=== PATIENT | female | born 1945 | race Caucasian/White ===

== ENCOUNTER 2020-01-20 16:54 | Inpatient (IN) ==
[2020-01-20] MEDS ORDERED: ROCEPHIN VIAL 1 GRAM 1 G in NS 100 ML IV + SPIKE MINIBAG* 100 ML IV ONE (17:43)
[2020-01-20] MEDS ORDERED: ZITHROMAX INJ 500 MG VIAL 500 MG in NS 250 ML IV 250 ML IV SCH (17:44)
[2020-01-20] MEDS ORDERED: ZITHROMAX INJ 500 MG VIAL IV ONE (17:54)
[2020-01-20] MEDS ORDERED: NS 250 ML IV 250 ML IV ONE (17:54)
[2020-01-20 18:05] LABS: BASOPHILS # (AUTO) 0.2 X10^3/uL (0.0-0.1); BASOPHILS % (AUTO) 1.1 % (0.2-1.0); HEMATOCRIT 35.6 % (36.0-47.0); HEMOGLOBIN 12.2 g/dL (12.0-16.0); LYMPHOCYTES # (AUTO) 2.4 X10^3/uL (1.3-2.9); LYMPHOCYTES % (AUTO) 17.4 % (21.0-51.0); MEAN CORPUSCULAR HEMOGLOBIN 32.1 pg (27.0-34.0); MEAN CORPUSCULAR HGB CONC 34.4 g/dL (33.0-35.0); MEAN CORPUSCULAR VOLUME 93.4 fL (80.0-100.0); MONOCYTES # (AUTO) 0.4 x10^3/uL (0.3-0.8); MONOCYTES % (AUTO) 3.2 % (0.0-13.0); NEUTROPHILS # (AUTO) 10.7 x10^3/uL (2.2-4.8); NEUTROPHILS % (AUTO) 78.3 % (42.0-75.0); PLATELET COUNT 238 X10^3/uL (150.0-450.0); RED BLOOD COUNT 3.81 X10^6/uL (3.5-5.4); RED CELL DISTRIBUTION WIDTH 13.2 % (11.6-16.5); WHITE BLOOD COUNT 13.7 X10^3/uL (3.6-10.0)
[2020-01-20 18:24] LABS: ALANINE AMINOTRANSFERASE 23 Units/L (12-78); ALKALINE PHOSPHATASE 82 Units/L (46-116); ASPARTATE AMINO TRANSFERASE 29 Units/L (15-37); BLOOD UREA NITROGEN 11 mg/dL (7-18); CALCIUM 8.8 mg/dL (8.5-10.1); CARBON DIOXIDE 25.9 mmol/L (21-32); CHLORIDE 96 mmol/L (98-107); COR CA(FOR HYPOALB) 9.6 mg/dL (8.5-10.1); COR NA(FOR HYPERGLY) 129 mmol/L (136-145); CREATININE 0.92 mg/dL (0.55-1.02); SODIUM 129 mmol/L (136-145); TOTAL PROTEIN 6.7 g/dL (6.4-8.2); TROPONIN I < 0.02 ng/mL (0-1.5); eGFR NON BLACK RACES > 60 (>60)
--- NOTE | 2020-01-20 18:25 | DR.AMS ---
HPI <Omero Marquez - Last Filed: 01/27/20 15:04> Time Seen Time Seen by Provider: 01/20/20 17:40 PCP Primary Care Physician: DR. BAER Complaint Chief Complaint:: GRANDDAUGHTER PATIENT TESTED POSITIVE FOR COVID LAST WEEK. STATES [facility]CCAIN DISCHARGED HER YESTERDAY FROM THE ER D/T NO BEDS. STATES CHO DIAGNOISED HER WITH PNA AND SENT HER HOME ON OXYGEN. PATIENT HAS BEEN CONFUSED AND TALKING OUT OF HER HEAD TODAY. PATIENT IS VERY WEAK AND CAN'T HARDLY WALK. COVID-19 Coronavirus risk:travel/contact w/high risk person: No Has patient experienced Coronavirus symptoms: Yes Coronavirus symptoms experienced: Fever, Coughing and Shortness of Breath Source History Provided: Family Member Mode of Arrival Mode of Arrival: Wheelchair Timing Onset of Chief Complaint: 01/19/20 PMH <Omeor Marquez - Last Filed: 01/27/20 15:04> PMH Past Medical History: No Past Surgical History: No Surgical History: No History Family History History of Family Medical Conditions: No Social History Does any household member use tobacco: No Alcohol Use: None Do you use any recreational Drugs:: No Lives With: Alone Lives Where: Home Travel Risk Coronavirus risk:travel/contact w/high risk person: No Has patient experienced Coronavirus symptoms: Yes Coronavirus symptoms experienced: Fever, Coughing and Shortness of Breath Infectious screening Have you traveled outside the country in the last 6 months?: No Isolation: Droplet ROS <Omero Marquez - Last Filed: 01/27/20 15:04> Review of Systems Constitutional: Diaphoresis, Fever, Malaise, Weakness and Fatigue Eyes: negative No Symptoms Reported, See HPI, Eye Pain, Blurred Vision, Tearing, Discharge, Photophobia, Diplopia and Other ENTM: negative No Symptoms Reported, See HPI, Ear Pain, Ear Discharge, Pulling o n Ears, Hearing Loss, Nose Pain, Nose Discharge, Epistaxis, Nose Congestion, Mouth Pain, Mouth Swelling, Loose Teeth, Drooling, Throat Pain, Throat Swelling, Ear Foreign Body and Tooth/Dental Pain Respiratoy: See HPI, Non-Productive Cough, Short of Breath and Wheezing Cardiovascular: negative No Symptoms Reported, See HPI, Chest Pain, Edema, Palpitations, Syncope, Cyanosis, Skin Mottling and Other Gastrointestinal/Abdominal: negative No Symptoms Reported, See HPI, Abdominal P ain, Constipation, Diarrhea, Nausea, Vomiting, Food Intolerance and Other Genitourinary: negative No Symptoms Reported, See HPI, Discharge, Dysuria, [place] quency, Hematuria, Pain, Bleeding and Other Neurological: Other (some confusion profound weakness) Musculoskeletal: Muscle Pain Integumentary: negative No Symptoms Reported, See HPI, Change in Color, Change in Hair/Nails, Dryness, Lesions, Lumps, Rash, Itching, Wound, Bruises, Juandice and Other Endocrine: negative No Symptoms Reported, See HPI, Excessive Sweating, Flushing, Intolerance to Cold, Intolerance to Heat, Increased Hunger, Increased Thirst, Increased Urine, Unexplained Weight Gain, Unexplained Weight Loss, Failure to Thrive, Decreased Appetite and Other Psychiatric: negative No Symptoms Reported, See HPI, Anxiety, Depression, Hallucinations, Excessive crying, Suicidal and Other All Other Systems: Reviewed and Negative PE <Omero Marquez - Last Filed: 01/27/20 15:04> Vitals Vital Signs: Temp Pulse Resp BP Pulse Ox 01/20/20 20:00 103 H 20 100/51 99 01/20/20 19:00 104 H 20 103/52 99 01/20/20 18:01 104 H 20 106/53 97 01/20/20 17:19 102.6 F H 119 H 20 94/54 86 L General Limitations: No Limitations General Appearance: Alert and Other (pt very weak but alert and oriented X3 ) Head Head Exam: Normal Inspection, Atraumatic and Normocephalic Eyes Eye exam: Normal Appearance, PERRL and EOMI; negative Scleral Icterus and Conjunctival Injection Pupils: Regular, Round: Bilateral ENT ENT Exam: Normal Exam, Normal Oropharynx, Normal External Ear Exam and Mucous Membranes Moist External Ear Exam: Normal External Inspection Mouth Exam: Normal Inspection Throat Exam: Normal Inspection Neck Neck Exam: Normal Inspection, Full ROM and Trachea Midline; negative Tenderness, Meningismus and Lymphadenopathy Chest Chest Inspection: Normal Inspection, Symmetric Chest Wall Rise and Tenderness Respiratory Respiratory Exam: negative Accessory Muscle Use, Chest Wall Tenderness and Prolonged Expiratory Phase Respiratory Exam: Bilateral: Rhonchi Cardiovascular Cardiovascular Exam: Regular Rate, Normal Rhythm and Normal Heart Sounds Abdominal Exam Abdominal Exam: Normal Inspection, Normal Bowel Sounds and Soft; negative Distention and Tenderness Extremities Extremities Exam: Normal Inspection and Full ROM; negative Tenderness and Edema Back Back Exam: Normal Inspection; negative Tenderness, (R) CVA Tenderness, (L) CVA Tenderness and Vertebral Tenderness Neurological Neurological Exam: Alert, Oriented X3 and Other (gait not tested 2nd to extreme weakness) Patient Oriented To: Person, Place and Time Speech: Fluid Speech Psychological Psychiatric Exam: Normal Affect and Normal Mood Skin Skin Exam: Warm, Dry, Intact and Normal Color <Sherry Sherman - Last Filed: 01/21/20 00:57> Vitals Vital Signs: Temp Pulse Resp BP Pulse Ox 01/20/20 20:00 103 H 20 100/51 99 01/20/20 19:00 104 H 20 103/52 99 01/20/20 18:01 104 H 20 106/53 97 01/20/20 17:19 102.6 F H 119 H 20 94/54 86 L <Sherry Sherman - Last Filed: 01/21/20 00:57> Treatment Treatment: [address] Marquez earlier this afternoon; s/w Dr Mccann who agrees to admit pt; of note, she tested covid + January 08. ROR <Omero Marquez - Last Filed: 01/27/20 15:04> Labs Reviewed Result Diagrams: 01/26/20 04:33 01/26/20 04:33 Laboratory: 01/20/20 18:17 Blood Blood Culture - Final 01/20/20 17:35 Blood Blood Culture - Final WBC 13.7 X10^3/uL (3.6-10.0) H 01/20/20 17:35 RBC 3.81 X10^6/uL (3.5-5.4) 01/20/20 17:35 Hgb 12.2 g/dL (12.0-16.0) 01/20/20 17:35 Hct 35.6 % (36.0-47.0) L 01/20/20 17:35 MCV 93.4 fL (80.0-100.0) 01/20/20 17:35 MCH 32.1 pg (27.0-34.0) 01/20/20 17:35 MCHC 34.4 g/dL (33.0-35.0) 01/20/20 17:35 RDW 13.2 % (11.6-16.5) 01/20/20 17:35 Plt Count 238 X10^3/uL (150.0-450.0) 01/20/20 17:35 MPV 9.0 fL (7.4-11.0) 01/20/20 17:35 Neut % (Auto) 78.3 % (42.0-75.0) H 01/20/20 17:35 Lymph % (Auto) 17.4 % (21.0-51.0) L 01/20/20 17:35 Garvin % (Auto) 3.2 % (0.0-13.0) 01/20/20 17:35 Eos % (Auto) 0.0 % (0.9-2.9) L 01/20/20 17:35 Baso % (Auto) 1.1 % (0.2-1.0) H 01/20/20 17:35 Neut # (Auto) 10.7 x10^3/uL (2.2-4.8) H 01/20/20 17:35 Lymph # (Auto) 2.4 X10^3/uL (1.3-2.9) 01/20/20 17:35 Garvin # (Auto) 0.4 x10^3/uL (0.3-0.8) 01/20/20 17:35 Eos # (Auto) 0.0 x10^3/uL (0.0-0.2) 01/20/20 17:35 Baso # (Auto) 0.2 X10^3/uL (0.0-0.1) H 01/20/20 17:35 Absolute Nucleated RBC 0.0 /100WBC 01/20/20 17:35 Sample Site Rra 01/20/20 18:36 ABG pH 7.550 (7.35-7.45) H 01/20/20 18:36 ABG pCO2 30.0 mmHg (35.0-45.0) L 01/20/20 18:36 ABG pO2 59.0 mmHg (80.0-100.0) L 01/20/20 18:36 ABG HCO3 26.2 mmol/L (22-26) H 01/20/20 18:36 ABG O2 Saturation 94.0 % (90-100) 01/20/20 18:36 ABG Base Excess 4.3 mmol/L (-2.0-2.0) H 01/20/20 18:36 Marquise Test Pos 01/20/20 18:36 A-a Gradient 53.0 mmHg 01/20/20 18:36 FiO2 21.0 01/20/20 18:36 Blood Gas Comments Pt yfn well eb 01/20/20 18:36 Sodium 129 mmol/L (136-145) L 01/20/20 17:35 Corrected Sodium 129 mmol/L (136-145) L 01/20/20 17:35 Potassium 3.9 mmol/L (3.5-5.1) 01/20/20 17:35 Chloride 96 mmol/L (98-107) L 01/20/20 17:35 Carbon Dioxide 25.9 mmol/L (21-32) 01/20/20 17:35 BUN 11 mg/dL (7-18) 01/20/20 17:35 Creatinine 0.92 mg/dL (0.55-1.02) 01/20/20 17:35 Est GFR (MDRD) Af Amer > 60 (>60) 01/20/20 17:35 Est GFR (MDRD) Non-Af > 60 (>60) 01/20/20 17:35 Glucose 120 mg/dL (65-99) H 01/20/20 17:35 Lactic Acid 1.1 mmol/L (0.4-2.0) 01/20/20 17:35 Calcium 8.8 mg/dL (8.5-10.1) 01/20/20 17:35 Corrected Calcium 9.6 mg/dL (8.5-10.1) 01/20/20 17:35 Total Bilirubin 0.40 mg/dL (0.2-1.0) 01/20/20 17:35 AST 29 Units/L (15-37) 01/20/20 17:35 ALT 23 Units/L (12-78) 01/20/20 17:35 Alkaline Phosphatase 82 Units/L (46-116) 01/20/20 17:35 Troponin I < 0.02 ng/mL (0-1.5) 01/20/20 17:35 B-Natriuretic Peptide 64.5 pg/mL (0-79) 01/20/20 17:35 Total Protein 6.7 g/dL (6.4-8.2) 01/20/20 17:35 Albumin 3.0 g/dL (3.4-5.0) L 01/20/20 17:35 Globulin 3.7 g/dL (2.5-4.5) 01/20/20 17:35 Albumin/Globulin Ratio 0.8 Ratio (1.1-2.1) L 01/20/20 17:35 Specimen Type Clean catch urine 01/20/20 21:11 Urine Color Yellow (YELLOW) 01/20/20 21:11 Urine Appearance Clear (CLEAR) 01/20/20 21:11 Urine pH 8.0 (5.0 - 8.0) 01/20/20 21:11 Ur Specific [place] 1.010 (1.000-1.030) 01/20/20 21:11 Urine Protein 2+ (NEGATIVE) 01/20/20 21:11 Urine Glucose (UA) Negative (NEGATIVE) 01/20/20 21:11 Urine Ketones 2+ (NEGATIVE) 01/20/20 21:11 Urine Occult Blood Negative (NEGATIVE) 01/20/20 21:11 Urine Nitrite Negative (NEGATIVE) 01/20/20 21:11 Urine Bilirubin Negative (NEGATIVE) 01/20/20 21:11 Urine Urobilinogen Normal (NORMAL) 01/20/20 21:11 Ur Leukocyte Esterase 1+ (NEGATIVE) 01/20/20 21:11 Urine RBC None seen /HPF (0-3) 01/20/20 21:11 Urine WBC 0-2 /HPF (0-5) 01/20/20 21:11 Ur Squamous Epith Cells Few /HPF (NEGATIVE) 01/20/20 21:11 Urine Bacteria Trace /HPF (NEGATIVE) 01/20/20 21:11 Ur Culture Indicated? No/not indicated 01/20/20 21:11 EKG Rate: 103 Rhythm: NSR Block: None Hypertrophy: LAE ST: Normal <Sherry Sherman - Last Filed: 01/21/20 00:57> Labs Reviewed Laboratory Results Reviewed?: Yes Laboratory: 01/20/20 18:17 Blood Blood Culture - Final 01/20/20 17:35 Blood Blood Culture - Final WBC 13.7 X10^3/uL (3.6-10.0) H 01/20/20 17:35 RBC 3.81 X10^6/uL (3.5-5.4) 01/20/20 17:35 Hgb 12.2 g/dL (12.0-16.0) 01/20/20 17:35 Hct 35.6 % (36.0-47.0) L 01/20/20 17:35 MCV 93.4 fL (80.0-100.0) 01/20/20 17:35 MCH 32.1 pg (27.0-34.0) 01/20/20 17:35 MCHC 34.4 g/dL (33.0-35.0) 01/20/20 17:35 RDW 13.2 % (11.6-16.5) 01/20/20 17:35 Plt Count 238 X10^3/uL (150.0-450.0) 01/20/20 17:35 MPV 9.0 fL (7.4-11.0) 01/20/20 17:35 Neut % (Auto) 78.3 % (42.0-75.0) H 01/20/20 17:35 Lymph % (Auto) 17.4 % (21.0-51.0) L 01/20/20 17:35 Garvin % (Auto) 3.2 % (0.0-13.0) 01/20/20 17:35 Eos % (Auto) 0.0 % (0.9-2.9) L 01/20/20 17:35 Baso % (Auto) 1.1 % (0.2-1.0) H 01/20/20 17:35 Neut # (Auto) 10.7 x10^3/uL (2.2-4.8) H 01/20/20 17:35 Lymph # (Auto) 2.4 X10^3/uL (1.3-2.9) 01/20/20 17:35 Garvin # (Auto) 0.4 x10^3/uL (0.3-0.8) 01/20/20 17:35 Eos # (Auto) 0.0 x10^3/uL (0.0-0.2) 01/20/20 17:35 Baso # (Auto) 0.2 X10^3/uL (0.0-0.1) H 01/20/20 17:35 Absolute Nucleated RBC 0.0 /100WBC 01/20/20 17:35 Sample Site Rra 01/20/20 18:36 ABG pH 7.550 (7.35-7.45) H 01/20/20 18:36 ABG pCO2 30.0 mmHg (35.0-45.0) L 01/20/20 18:36 ABG pO2 59.0 mmHg (80.0-100.0) L 01/20/20 18:36 ABG HCO3 26.2 mmol/L (22-26) H 01/20/20 18:36 ABG O2 Saturation 94.0 % (90-100) 01/20/20 18:36 ABG Base Excess 4.3 mmol/L (-2.0-2.0) H 01/20/20 18:36 Marquise Test Pos 01/20/20 18:36 A-a Gradient 53.0 mmHg 01/20/20 18:36 FiO2 21.0 01/20/20 18:36 Blood Gas Comments Pt yfn well eb 01/20/20 18:36 Sodium 129 mmol/L (136-145) L 01/20/20 17:35 Corrected Sodium 129 mmol/L (136-145) L 01/20/20 17:35 Potassium 3.9 mmol/L (3.5-5.1) 01/20/20 17:35 Chloride 96 mmol/L (98-107) L 01/20/20 17:35 Carbon Dioxide 25.9 mmol/L (21-32) 01/20/20 17:35 BUN 11 mg/dL (7-18) 01/20/20 17:35 Creatinine 0.92 mg/dL (0.55-1.02) 01/20/20 17:35 Est GFR (MDRD) Af Amer > 60 (>60) 01/20/20 17:35 Est GFR (MDRD) Non-Af > 60 (>60) 01/20/20 17:35 Glucose 120 mg/dL (65-99) H 01/20/20 17:35 Lactic Acid 1.1 mmol/L (0.4-2.0) 01/20/20 17:35 Calcium 8.8 mg/dL (8.5-10.1) 01/20/20 17:35 Corrected Calcium 9.6 mg/dL (8.5-10.1) 01/20/20 17:35 Total Bilirubin 0.40 mg/dL (0.2-1.0) 01/20/20 17:35 AST 29 Units/L (15-37) 01/20/20 17:35 ALT 23 Units/L (12-78) 01/20/20 17:35 Alkaline Phosphatase 82 Units/L (46-116) 01/20/20 17:35 Troponin I < 0.02 ng/mL (0-1.5) 01/20/20 17:35 B-Natriuretic Peptide 64.5 pg/mL (0-79) 01/20/20 17:35 Total Protein 6.7 g/dL (6.4-8.2) 01/20/20 17:35 Albumin 3.0 g/dL (3.4-5.0) L 01/20/20 17:35 Globulin 3.7 g/dL (2.5-4.5) 01/20/20 17:35 Albumin/Globulin Ratio 0.8 Ratio (1.1-2.1) L 01/20/20 17:35 Specimen Type Clean catch urine 01/20/20 21:11 Urine Color Yellow (YELLOW) 01/20/20 21:11 Urine Appearance Clear (CLEAR) 01/20/20 21:11 Urine pH 8.0 (5.0 - 8.0) 01/20/20 21:11 Ur Specific [place] 1.010 (1.000-1.030) 01/20/20 21:11 Urine Protein 2+ (NEGATIVE) 01/20/20 21:11 Urine Glucose (UA) Negative (NEGATIVE) 01/20/20 21:11 Urine Ketones 2+ (NEGATIVE) 01/20/20 21:11 Urine Occult Blood Negative (NEGATIVE) 01/20/20 21:11 Urine Nitrite Negative (NEGATIVE) 01/20/20 21:11 Urine Bilirubin Negative (NEGATIVE) 01/20/20 21:11 Urine Urobilinogen Normal (NORMAL) 01/20/20 21:11 Ur Leukocyte Esterase 1+ (NEGATIVE) 01/20/20 21:11 Urine RBC None seen /HPF (0-3) 01/20/20 21:11 Urine WBC 0-2 /HPF (0-5) 01/20/20 21:11 Ur Squamous Epith Cells Few /HPF (NEGATIVE) 01/20/20 21:11 Urine Bacteria Trace /HPF (NEGATIVE) 01/20/20 21:11 Ur Culture Indicated? No/not indicated 01/20/20 21:11 Covid19 positive Other Results Comments: 2309 Dr Mccann notified of covid19 results; will place on protocol. XRAY XRAY Interpreted by: Radiologist X-ray Results: CXR: Perihilar and bibasilar opacities suggestive of early multisegmental bronchopneumonia which is more apparent. Stable mild cardiomegaly. BRAIN CT: No abnormality seen. Opioid <Omero Marquez - Last Filed: 01/27/20 15:04> Opioid Risk Tool Age ([place] box if 16-45): No Total: 0 Total Score Risk Category: Low Risk Copyright: Smith ARVIN predicting aberrant behaviors <Sherry Sherman - Last Filed: 01/21/20 00:57> Opioid Risk Tool Total: 0 Total Score Risk Category: Low Risk <Omero Marquez - Last Filed: 01/27/20 15:04> Diagnosis Discharge Problem: Hyponatremia, Hypoxia, COVID-19 virus detected Pneumonia of both lower lobes Qualifiers: Pneumonia type: due to unspecified organism Qualified Code(s): J18.9 - Pneumonia, unspecified organism Altered mental status Qualifiers: Altered mental status type: disorientation Qualified Code(s): R41.0 - Disorientation, unspecified Sepsis Qualifiers: Sepsis type: sepsis due to unspecified organism Sepsis acute organ dysfunction status: with acute organ dysfunction Severe sepsis acute organ dysfunction type: acute respiratory failure Acute respiratory failure type: with hypoxia Severe sepsis shock status: without septic shock Qualified Code(s): A41.9 - Sepsis, unspecified organism Instructions Instructions: Confusion Fatigue Hand Washing, [id number] Hypoxia Fever, Adult Cough, Adult, Wtqg-am-Rzve Personal Hygiene Droplet Precautions, Jnaz-cp-Nmur Bleeding Precautions When on Anticoagulant Therapy, Adult Hyponatremia, Epyn-iu-Wevy Community-Acquired Pneumonia, Adult, [id number] Forms: Excuse From Work Precautions for COVID19 Patient Portal
[2020-01-20 18:35] LABS: LACTIC ACID 1.1 mmol/L (0.4-2.0)
[2020-01-20 18:40] LABS: ABG BASE EXCESS 4.3 mmol/L (-2.0-2.0); ABG HCO3 26.2 mmol/L (22-26)
[2020-01-20 18:41] LABS: ABG ALLEN TEST POS
[2020-01-20] MEDS ORDERED: ROCEPHIN VIAL 1 GRAM ONE (19:07)
[2020-01-20] MEDS ORDERED: NS 100 ML IV + SPIKE MINIBAG* 100 ML IV ONE (19:07)
--- NOTE | 2020-01-20 19:20 | CT ---
HISTORY: Mental status changesStudy: CT brain without contrastComparison: 07/25/2019Technique:Multiple axial images of the brain were obtained from the skull base to the vertex without administration of IV contrast. Automated dose control was utilized.Findings:No acute intraparenchymal hemorrhage or mass can be identified. No extra-axial fluid collections are seen. No alteration in the attenuation of the brain parenchyma can be identified to suggest acute or subacute ischemic change. The ventricular system is symmetric and nondilated. The extracranial structures are grossly unremarkable.IMPRESSION:No abnormality seen.Electronically signed by: FREDDY MCWILLIAMS (Jan 20, 2020 19:18:26)
--- NOTE | 2020-01-20 19:40 | RAD ---
HISTORYSOB, COVID-19+STUDYCHEST, 1 [id number]/2020FINDINGSThe heart is mildly enlarged but unchanged. The pulmonary vessels are normal. There is hazy opacity along the perihilar regions extending laterally and inferiorly into both lung bases which is more prominent. No effusion is seen.IMPRESSIONPerihilar and bibasilar opacities suggestive of early multisegmental bronchopneumonia which is more apparent.Stable mild cardiomegaly.Electronically signed by: FREDDY MCWILLIAMS (Jan 20, 2020 19:39:27)
[2020-01-20 21:27] LABS: BILIRUBIN,URINE NEGATIVE (NEGATIVE); BLOOD/HEMOGLOBIN,URINE NEGATIVE (NEGATIVE); GLUCOSE, URINE NEGATIVE (NEGATIVE); KETONES,URINE 2+ (NEGATIVE); LEUKOCYTE ESTERASE ,URINE 1+ (NEGATIVE); NITRITES,URINE NEGATIVE (NEGATIVE); PROTEIN,URINE 2+ (NEGATIVE); UROBILINOGEN,URINE NORMAL (NORMAL)
[2020-01-20 21:44] LABS: APPEARANCE,URINE CLEAR (CLEAR); COLOR,URINE YELLOW (YELLOW)
[2020-01-20 21:45] LABS: BACTERIA,URINE TRACE /HPF (NEGATIVE); RBC,URINE NONE SEEN /HPF (0-3); SQUAMOUS EPITHELIAL CELL,UR FEW /HPF (NEGATIVE)
[2020-01-20] MEDS ORDERED: NS 1000 ML 1,000 ML ONE (22:46)
[2020-01-20] MEDS: NS 1000 ML 1,000 ML IV SCH (22:51)
[2020-01-20] MEDS ORDERED: ASCORBIC ACID INJ MULTI-DOSE VIAL IM SCH (23:15)
[2020-01-20] MEDS ORDERED: CONSULT PHARMACY - ANTIBIOTIC XX SCH (23:45)
[2020-01-21 00:02] VITALS: BMI 17.7
[2020-01-21] MEDS: ASCORBIC ACID INJ MULTI-DOSE VIAL IV SCH ×2 (00:30→05:26)
[2020-01-21] MEDS ORDERED: NS 100 ML IV 100 ML IV ONE ×2 (00:36→03:53)
[2020-01-21 05:00] LABS: BASOPHILS % (AUTO) 0.3 % (0.2-1.0); HEMATOCRIT 35.7 % (36.0-47.0); LYMPHOCYTES # (AUTO) 2.4 X10^3/uL (1.3-2.9); LYMPHOCYTES % (AUTO) 18.6 % (21.0-51.0); MEAN CORPUSCULAR HEMOGLOBIN 31.9 pg (27.0-34.0); MEAN CORPUSCULAR HGB CONC 33.5 g/dL (33.0-35.0); MEAN CORPUSCULAR VOLUME 95.1 fL (80.0-100.0); MEAN PLATELET VOLUME 9.1 fL (7.4-11.0); MONOCYTES # (AUTO) 0.4 x10^3/uL (0.3-0.8); MONOCYTES % (AUTO) 2.8 % (0.0-13.0); NEUTROPHILS % (AUTO) 78.3 % (42.0-75.0); PLATELET COUNT 233 X10^3/uL (150.0-450.0); RED BLOOD COUNT 3.76 X10^6/uL (3.5-5.4); RED CELL DISTRIBUTION WIDTH 13.3 % (11.6-16.5); WHITE BLOOD COUNT 12.8 X10^3/uL (3.6-10.0)
[2020-01-21 05:20] LABS: ALANINE AMINOTRANSFERASE 23 Units/L (12-78); ALBUMIN 2.9 g/dL (3.4-5.0); ALKALINE PHOSPHATASE 85 Units/L (46-116); ASPARTATE AMINO TRANSFERASE 32 Units/L (15-37); BLOOD UREA NITROGEN 10 mg/dL (7-18); CALCIUM 8.4 mg/dL (8.5-10.1); CARBON DIOXIDE 26.9 mmol/L (21-32); CHLORIDE 100 mmol/L (98-107); COR CA(FOR HYPOALB) 9.3 mg/dL (8.5-10.1); CREATININE 0.98 mg/dL (0.55-1.02); SODIUM 135 mmol/L (136-145); TOTAL PROTEIN 6.8 g/dL (6.4-8.2); eGFR NON BLACK RACES 59 (>60)
[2020-01-21] MEDS ORDERED: POTASSIUM CHL 40 MEQ/NS 0.45% 500 ML IV PRN (06:40)
[2020-01-21] MEDS ORDERED: MICRO K EXTEN CAP 10 MEQ PO PRN (06:40)
[2020-01-21] MEDS ORDERED: KLOR-CON PO PRN (06:40)
[2020-01-21] MEDS ORDERED: POTASSIUM CHL 60 MEQ/NS 0.45% 500 ML IV PRN (06:40)
[2020-01-21] MEDS ORDERED: K-RIDER 10 MEQ/NS 100 ML 10 MEQ/100 ML BAG IV PRN (06:40)
[2020-01-21] MEDS ORDERED: POTASSIUM CHLORIDE LIQ 20 MEQ UDC PO PRN (06:40)
[2020-01-21] MEDS ORDERED: CORTEF ONE (08:40)
[2020-01-21] MEDS: PLAQUENIL PO SCH ×2 (08:43→20:44)
[2020-01-21] MEDS: LOVENOX INJ 30 MG SYR SC SCH ×2 (08:43→20:44)
[2020-01-21] MEDS: DUONEB 0.5 MG/3 MG (3 mL) NEB SCH ×4 (08:52→21:46)
[2020-01-21] MEDS: PULMICORT NEB TX 0.5 MG NEB SCH ×2 (08:52→21:46)
[2020-01-21] MEDS ORDERED: TYLENOL 325 MG TAB PO PRN (09:00)
[2020-01-21] MEDS ORDERED: CORTEF PO SCH (09:00)
[2020-01-21] MEDS ORDERED: VITAMIN A PO SCH (09:00)
[2020-01-21] MEDS ORDERED: VITAMIN D (1.25MG) PO SCH (09:00)
[2020-01-21] MEDS ORDERED: ZINC SULFATE PO SCH (09:00)
[2020-01-21] MEDS ORDERED: THIAMINE HCL INJ IVP SCH (09:00)
[2020-01-21] MEDS: K-DUR TAB 20 MEQ PO PRN (09:02)
[2020-01-21] MEDS ORDERED: PHARMACY CONSULT - TPN XX SCH (10:00)
[2020-01-21] MEDS ORDERED: REMDESIVIR (INVESTIGATIONAL DRUG GS-5734) 200 MG in NS 250 ML IV 250 ML IV NR (10:30)
[2020-01-21 10:44] LABS: ABG ALLEN TEST POS; ABG BASE EXCESS 2.3 mmol/L (-2.0-2.0)
[2020-01-21] MEDS: ACTEMRA 400 MG in NS 100 ML IV 80 ML IV SCH (11:22)
[2020-01-21] MEDS: LEVAQUIN PREMIX IV 500 MG 500 MG/100 ML BAG IV SCH (11:23)
[2020-01-21] MEDS: PROCALAMINE 3 % 1,000 ML IV SCH (11:23)
[2020-01-21] MEDS: PROTONIX INJ 40 MG VIAL IVP SCH ×2 (11:23→20:48)
[2020-01-21] MEDS: NS 1000 ML 1,000 ML IV SCH (11:24)
--- NOTE | 2020-01-21 13:01 | DR.H&P ---
H&P - History & Physical for Day of: H&P Date: 01/20/20 - Chief Complaint Chief Complaint: FEVER, COUGH, SOB, AMS, WEAKNESS - History of Present Illness History of Present Illness: IS A 74 YEAR OLD PATIENT OF DR.ROXY REYNA. SHE PRESENTED TO THE ER WITH COMPLAINTS OF FEVER, NON-COUGH, SHORTNESS OF BREATH, AMS, AND WEAKNESS. SYMPTOMS STARTED APPROXIMATELY THREE DAYS PRIOR. SHE WAS TREATED AND DIAGNOSED IN THE ER IN [place], [place] YESTERDAY FOR PNEMONIA. PATIENT REPORTS THAT HER GRANDAUGHTER TESTED POSITIVE FOR COVID- 19 ONE WEEK AGO AND THAT HER ABOUT A MONTH AGO DUE TO COMPLICATIONS RELATED TO COVID-19. HER PAST MEDICAL HISTORY INCLUDES: GERD, CHRONIC BRONCHITIS, KIDNEY STONES, HYPOTHYROIDISM, CHOLECYSTECTOMY, AND HYSTERECTOMY. ON ARRIVAL TO THE ER, VITALS WERE 102.6-119-20-86%RA-94/54. LABS WERE OBTAINED. ABNORMAL LAB VALUES INCLUDE THE FOLLOWING: WBC 13.7, HCT 35.6, SODIUM 129, CHLORIDE 96, GLUCOSE 120, ALBUMIN 3.0. A URINALYSIS WAS OBTAINED AND REVEALED: WBC 0-3, RBC NONE SEEN, LEUKOCYTES 1+, BACTERIA TRACE. COVID-19 POSITIVE. BLOOD CULTURES WERE SET UP. A CHEST XRAY WAS OBTAINED AND REVEALED: Perihilar and bibasilar opacities suggestive of early multisegmental bronchopneumonia which is more apparent. Stable mild cardiomegaly. AN EKG WAS OBTAINED AND REVEALED: SINUS TACHYCARDIA WITH HR 103. STAFF REPORTED THAT PATIENT HAD A SEIZURE WHILE IN THE ER AND WAS POST ICTAL FOR A WHILE FOLLOWING EPISODE. A BRAIN CT WAS OBTAINED DUE TO AMS AND REVEALED: No abnormality seen. SHE WAS GIVEN ZITHROMAX 500 IV X 1 AND ROCEPHIN 1G IV X 1 IN THE ER. SHE WAS ADMITTED FOR FURTHER EVALUATION AND TREATMENT OF COVID-19, MULTIFOCAL PNEUMONIA, HYPOXIA, HYPONATREMIA, AND AMS. SHE WAS STARTED ON NS AT 40 ML/HR, PROCALAMINE AT 40 ML/HR, LEVAQUIN 500MG IV DAILY, FORTAZ 1G IV Q8H, DUONEBS QID, PULMICORT BID, TYLENOL 650MG PO Q4H PRN, LOVENOX 30MG SC BID, PLAQUENIL 200MG PO BID, PROTONIX 40MG IV BID, AND THE POTASSIUM AND MAGNESIUM PROTOCOLS. TODAY, WE WILL ADMINISTER REMDESIVIR 200MG IV X 1 DOSE, THEN 100MG IV DAILY, ACTEMRA 400MG IV DAILY X 2 DOSES. WE WILL ADMINISTER SOLU-MEDROL 125MG IV X 1 DOSE, THEN 80MG IV Q8H. WE WILL REPEAT AN ABG TODAY. OTHERWISE, WE PLAN TO FOLLOW UP WITH AM LABS AND CONTINUE TO MONITOR. - Past Medical History Past Medical History: GERD, Hypothyroidism, Kidney Stones Additional Medical History: CHRONIC BRONCHITIS, - Past Surgical History Surgical History: Cholecystectomy, Hysterectomy - Social History Does any household member use tobacco: No Alcohol Use: None Drug Use: None - Medications Home Medications: No Known Drug Allergies Allergy (Verified 01/20/20 19:04) CONTINUE taking the following medications clonazepam 0.125 mg TRANSLINGUAL TID 01/21/20 [History] dexamethasone 6 mg PO DAILY 01/21/20 [History] diclofenac sodium 1 % TOPICAL PRN PRN 01/21/20 [History] estradiol 0.5 mg PO DAILY 01/21/20 [History] ibuprofen 800 mg PO TID PRN 01/21/20 [History] ipratropium-albuterol [Combivent Respimat] 1 puff INHALATION BID 01/21/20 [History] levothyroxine [Synthroid] 75 mcg PO DAILY 01/21/20 [History] meclizine 25 mg PO TID PRN 01/21/20 [History] naproxen 500 mg PO BID PRN 01/21/20 [History] nortriptyline 10 mg PO DAILY 01/21/20 [History] omeprazole 40 mg PO DAILY 01/21/20 [History] perphenazine-amitriptyline 1 tab PO DAILY 01/21/20 [History] prednisone 10 mg PO BID 01/21/20 [History] zinc sulfate 220 mg PO BID 01/21/20 [History] - Review of Systems Constitutional: Fever, Chills, Weakness Eyes: No Symptoms Reported ENT: No Symptoms Reported, Nose Congestion Respiratory: Cough, Shortness of Breath Cardiovascular: No Symptoms Reported Gastrointestinal: No Symptoms Reported Genitourinary: No Symptoms Reported Musculoskeletal: No Symptoms Reported Skin: No Symptoms Reported Neurological: Weakness, Confusion, Seizures - Physical Exam Vital Signs: Temperature 98.2 F Pulse Rate [Left Brachial] 100 Pulse Rate 93 Respiratory Rate 19 Blood Pressure [Left Arm] 99/52 Blood Pressure 100/51 O2 Sat by Pulse Oximetry 98 Oriented: Not Oriented Eyes: Normal Ear: Normal Nose: Normal Throat: Normal Respiratory: Wheezes Throughout Cardiovascular: Tachycardia. negative: S3, S4 : Normal Auscultation: Bowel Sounds: Normal Palpation: Normal Tenderness: Normal Skin: Normal Musculoskeletal: Normal Psychiatric: Normal Mood Description: Calm Affect: Normal Speech Pattern: Clear - Assessment/Plan (1) COVID-19 virus detected Status: Acute Plan: ADMIT, NS AT 40 ML/HR, PROCALAMINE AT 40 ML/HR, LEVAQUIN 500MG IV DAILY, FORTAZ 1G IV Q8H, DUONEBS QID, PULMICORT BID, TYLENOL 650MG PO Q4H PRN, LOVENOX 30MG SC BID, PLAQUENIL 200MG PO BID, PROTONIX 40MG IV BID, AND THE POTASSIUM AND MAGNESIUM PROTOCOLS. TODAY, WE WILL ADMINISTER REMDESIVIR 200MG IV X 1 DOSE, THEN 100MG IV DAILY, ACTEMRA 400MG IV DAILY X 2 DOSES. WE WILL ADMINISTER SOLU- MEDROL 125MG IV X 1 DOSE, THEN 80MG IV Q8H (2) Pneumonia of both lower lobes Qualifiers: Pneumonia type: due to unspecified organism Qualified Code(s): J18.9 - Pneumonia, unspecified organism Status: Acute (3) Hypoxia Status: Acute (4) Hyponatremia Status: Acute (5) Altered mental status Qualifiers: Altered mental status type: disorientation Qualified Code(s): R41.0 - Disorientation, unspecified Status: Acute - Allergies Allergies/Adverse Reactions: Allergies Allergy/AdvReac Type Severity Reaction Status Date / Time No Known Drug Allergies Allergy Verified 01/20/20 19:04
[2020-01-21] MEDS: FORTAZ or TAZICEF VIAL INJ 1 G in NS 100 ML IV + SPIKE MINIBAG* 100 ML IV SCH ×2 (13:03→22:00)
[2020-01-21] MEDS ORDERED: SOLU-Medrol 125 MG VIAL IVP ONE (14:00)
[2020-01-21] MEDS ORDERED: SOLU-Medrol 40 MG VIAL ONE (19:44)
[2020-01-21] MEDS: SOLU-Medrol 40 MG VIAL IVP SCH (22:00)
[2020-01-21] MEDS ORDERED: ZITHROMAX INJ 500 MG VIAL 500 MG in NS 250 ML IV 250 ML IV SCH (23:00)
[2020-01-22] MEDS: NS 1000 ML 1,000 ML IV SCH ×2 (01:43→14:53)
[2020-01-22 05:28] LABS: ABG ALLEN TEST POS; ABG BASE EXCESS 0.1 mmol/L (-2.0-2.0); ABG HCO3 23.6 mmol/L (22-26)
[2020-01-22] MEDS: FORTAZ or TAZICEF VIAL INJ 1 G in NS 100 ML IV + SPIKE MINIBAG* 100 ML IV SCH ×3 (06:09→22:10)
[2020-01-22] MEDS: SOLU-Medrol 40 MG VIAL IVP SCH ×3 (06:09→21:15)
--- NOTE | 2020-01-22 06:09 | RAD ---
HISTORYSOBSTUDYCHEST, 1 [id number]/14/2020FINDINGSThe trachea is midline. The cardiac silhouette is stable. Bibasilar infiltrates, unchanged. No pneumothorax. The bony thorax is unremarkable.IMPRESSIONBibasilar infiltrates; no significant change from 01/20/2020Electronically signed by: Saji Herrera (Jan 22, 2020 06:08:17)
[2020-01-22 07:18] LABS: BASOPHILS % (AUTO) 0.1 % (0.2-1.0); HEMATOCRIT 30.7 % (36.0-47.0); HEMOGLOBIN 10.6 g/dL (12.0-16.0); LYMPHOCYTES # (AUTO) 0.8 X10^3/uL (1.3-2.9); LYMPHOCYTES % (AUTO) 14.6 % (21.0-51.0); MEAN CORPUSCULAR HEMOGLOBIN 32.3 pg (27.0-34.0); MEAN CORPUSCULAR HGB CONC 34.5 g/dL (33.0-35.0); MEAN CORPUSCULAR VOLUME 93.7 fL (80.0-100.0); MEAN PLATELET VOLUME 8.7 fL (7.4-11.0); MONOCYTES # (AUTO) 0.1 x10^3/uL (0.3-0.8); MONOCYTES % (AUTO) 1.8 % (0.0-13.0); NEUTROPHILS # (AUTO) 4.4 x10^3/uL (2.2-4.8); NEUTROPHILS % (AUTO) 83.5 % (42.0-75.0); PLATELET COUNT 197 X10^3/uL (150.0-450.0); RED BLOOD COUNT 3.28 X10^6/uL (3.5-5.4); RED CELL DISTRIBUTION WIDTH 13.2 % (11.6-16.5); WHITE BLOOD COUNT 5.3 X10^3/uL (3.6-10.0)
[2020-01-22 07:31] LABS: ALANINE AMINOTRANSFERASE 24 Units/L (12-78); ALBUMIN 2.2 g/dL (3.4-5.0); ALKALINE PHOSPHATASE 67 Units/L (46-116); ASPARTATE AMINO TRANSFERASE 28 Units/L (15-37); BLOOD UREA NITROGEN 11 mg/dL (7-18); CALCIUM 7.8 mg/dL (8.5-10.1); CARBON DIOXIDE 24.4 mmol/L (21-32); CHLORIDE 106 mmol/L (98-107); COR CA(FOR HYPOALB) 9.2 mg/dL (8.5-10.1); COR NA(FOR HYPERGLY) 138 mmol/L (136-145); CREATININE 0.63 mg/dL (0.55-1.02); SODIUM 137 mmol/L (136-145); TOTAL PROTEIN 5.7 g/dL (6.4-8.2); eGFR NON BLACK RACES > 60 (>60)
[2020-01-22] MEDS ORDERED: VITAMIN A PO SCH (09:00)
[2020-01-22] MEDS ORDERED: VITAMIN D3 25 mcg (1,000 UNITS) PO SCH (09:00)
[2020-01-22] MEDS: DUONEB 0.5 MG/3 MG (3 mL) NEB SCH ×4 (09:40→21:00)
[2020-01-22] MEDS: PULMICORT NEB TX 0.5 MG NEB SCH ×2 (09:40→21:00)
[2020-01-22] MEDS: ACTEMRA 400 MG in NS 100 ML IV 80 ML IV SCH (09:59)
[2020-01-22] MEDS: LEVAQUIN PREMIX IV 500 MG 500 MG/100 ML BAG IV SCH (09:59)
[2020-01-22] MEDS: PROTONIX INJ 40 MG VIAL IVP SCH ×2 (10:00→21:05)
[2020-01-22] MEDS: PROCALAMINE 3 % 1,000 ML IV SCH (10:00)
[2020-01-22] MEDS: REMDESIVIR (INVESTIGATIONAL DRUG GS-5734) 100 MG in NS 250 ML IV 250 ML IV SCH (10:00)
[2020-01-22] MEDS: LOVENOX INJ 30 MG SYR SC SCH ×2 (10:01→21:05)
[2020-01-22] MEDS: PLAQUENIL PO SCH ×2 (10:01→21:00)
[2020-01-22] MEDS ORDERED: MILK OF MAGNESIA ONE (14:35)
[2020-01-22] MEDS ORDERED: MILK OF MAGNESIA PO PRN (15:00)
--- NOTE | 2020-01-22 19:00 | RAD ---
HISTORYPICC LINE PLACEMENTSTUDYCHEST, 1 [id number]/16/2020FINDINGSThe heart is less prominent. The pulmonary vessels are less prominent centrally. There is hazy opacity throughout the perihilar regions and both lung bases which is decreased. No effusion is seen. There is a PICC line in place on the left with the tip in the distal superior vena cava. No effusion or pneumothorax is seen.IMPRESSIONStatus post left PICC line placement in good position.Slight decrease in the heart size with resolving pulmonary congestion.Slowly resolving infiltrates throughout both lungs.Electronically signed by: FREDDY MCWILLIAMS (Jan 22, 2020 18:59:12)
--- NOTE | 2020-01-22 19:22 | DR.UPDATE ---
H&P Update History and Physical Update: History and Physical reviewed and patient examined. Changes noted: NO Yes with the following:H&P reviewed, pt examined. Will place picc as ordered. H&P Reviewed: Yes Patient was examined?: Yes Procedures (ALL) - Central Line Placement PCM.CLCO: written consent Time out performed: Yes Patient placed pm monitor/pulse ox: Yes MD prep: mask, gown, gloves, other Centrial line prep: chlorhexidine scrub Local anesthsia used: lidocane 1% Ultrasound used for placement: Yes (left brachiocephalic id'd via u/s) Central line lumen ininserted: double (5.5fr picc. 12cm exposed of 50cm catheter.) Post procedure: good blood return, all ports aspirated, flushed,capped, sterile dressing applied Post procedure xray: tip oc catheter in good position, no pneumothorax seen Patient tolerated procedure: Yes Complications: none
[2020-01-22] MEDS: K-DUR TAB 20 MEQ PO PRN (23:04)
[2020-01-23] MEDS: NS 1000 ML 1,000 ML IV SCH ×4 (02:09→20:14)
[2020-01-23 05:49] LABS: BASOPHILS % (AUTO) 0.3 % (0.2-1.0); HEMATOCRIT 27.1 % (36.0-47.0); HEMOGLOBIN 9.3 g/dL (12.0-16.0); LYMPHOCYTES % (AUTO) 8.1 % (21.0-51.0); MEAN CORPUSCULAR HEMOGLOBIN 32.9 pg (27.0-34.0); MEAN CORPUSCULAR HGB CONC 34.3 g/dL (33.0-35.0); MEAN CORPUSCULAR VOLUME 95.9 fL (80.0-100.0); MEAN PLATELET VOLUME 9.3 fL (7.4-11.0); MONOCYTES # (AUTO) 0.4 x10^3/uL (0.3-0.8); MONOCYTES % (AUTO) 2.9 % (0.0-13.0); NEUTROPHILS # (AUTO) 10.8 x10^3/uL (2.2-4.8); NEUTROPHILS % (AUTO) 88.7 % (42.0-75.0); PLATELET COUNT 219 X10^3/uL (150.0-450.0); RED BLOOD COUNT 2.83 X10^6/uL (3.5-5.4); RED CELL DISTRIBUTION WIDTH 13.1 % (11.6-16.5); WHITE BLOOD COUNT 12.2 X10^3/uL (3.6-10.0)
[2020-01-23 05:50] LABS: ALANINE AMINOTRANSFERASE 24 Units/L (12-78); ALKALINE PHOSPHATASE 58 Units/L (46-116); ASPARTATE AMINO TRANSFERASE 23 Units/L (15-37); BLOOD UREA NITROGEN 15 mg/dL (7-18); CALCIUM 7.6 mg/dL (8.5-10.1); CARBON DIOXIDE 25.8 mmol/L (21-32); CHLORIDE 106 mmol/L (98-107); COR CA(FOR HYPOALB) 9.2 mg/dL (8.5-10.1); COR NA(FOR HYPERGLY) 137 mmol/L (136-145); SODIUM 136 mmol/L (136-145); TOTAL PROTEIN 5.1 g/dL (6.4-8.2); eGFR NON BLACK RACES > 60 (>60)
[2020-01-23] MEDS: FORTAZ or TAZICEF VIAL INJ 1 G in NS 100 ML IV + SPIKE MINIBAG* 100 ML IV SCH ×3 (06:14→21:47)
[2020-01-23] MEDS: SOLU-Medrol 40 MG VIAL IVP SCH ×3 (06:14→22:15)
[2020-01-23] MEDS: PROCALAMINE 3 % 1,000 ML IV SCH ×2 (06:15→10:23)
[2020-01-23] MEDS: LOVENOX INJ 30 MG SYR SC SCH ×2 (08:50→20:13)
[2020-01-23] MEDS: PLAQUENIL PO SCH ×2 (08:51→20:14)
[2020-01-23] MEDS: REMDESIVIR (INVESTIGATIONAL DRUG GS-5734) 100 MG in NS 250 ML IV 250 ML IV SCH (08:51)
[2020-01-23] MEDS: PROTONIX INJ 40 MG VIAL IVP SCH ×2 (08:51→20:14)
[2020-01-23] MEDS: DUONEB 0.5 MG/3 MG (3 mL) NEB SCH ×4 (08:56→21:36)
[2020-01-23] MEDS: PULMICORT NEB TX 0.5 MG NEB SCH ×2 (08:56→21:36)
[2020-01-23] MEDS: LEVAQUIN PREMIX IV 500 MG 500 MG/100 ML BAG IV SCH (10:18)
[2020-01-23] MEDS: ROBITUSSIN DM PO PRN (23:02)
[2020-01-24] MEDS: FORTAZ or TAZICEF VIAL INJ 1 G in NS 100 ML IV + SPIKE MINIBAG* 100 ML IV SCH ×3 (05:10→21:16)
[2020-01-24] MEDS: SOLU-Medrol 40 MG VIAL IVP SCH ×3 (05:10→21:16)
[2020-01-24] MEDS: NS 1000 ML 1,000 ML IV SCH ×2 (05:31→17:11)
[2020-01-24 05:33] LABS: BASOPHILS # (AUTO) 0.1 X10^3/uL (0.0-0.1); BASOPHILS % (AUTO) 0.4 % (0.2-1.0); HEMATOCRIT 26.5 % (36.0-47.0); LYMPHOCYTES % (AUTO) 6.4 % (21.0-51.0); MEAN CORPUSCULAR HEMOGLOBIN 32.5 pg (27.0-34.0); MEAN CORPUSCULAR VOLUME 95.5 fL (80.0-100.0); MEAN PLATELET VOLUME 9.6 fL (7.4-11.0); MONOCYTES # (AUTO) 0.4 x10^3/uL (0.3-0.8); MONOCYTES % (AUTO) 2.3 % (0.0-13.0); NEUTROPHILS # (AUTO) 14.2 x10^3/uL (2.2-4.8); NEUTROPHILS % (AUTO) 90.9 % (42.0-75.0); PLATELET COUNT 224 X10^3/uL (150.0-450.0); RED BLOOD COUNT 2.77 X10^6/uL (3.5-5.4); RED CELL DISTRIBUTION WIDTH 13.3 % (11.6-16.5); WHITE BLOOD COUNT 15.6 X10^3/uL (3.6-10.0)
[2020-01-24 05:38] LABS: ALANINE AMINOTRANSFERASE 21 Units/L (12-78); ALBUMIN 1.9 g/dL (3.4-5.0); ALKALINE PHOSPHATASE 60 Units/L (46-116); ASPARTATE AMINO TRANSFERASE 18 Units/L (15-37); BLOOD UREA NITROGEN 18 mg/dL (7-18); CALCIUM 7.4 mg/dL (8.5-10.1); CARBON DIOXIDE 24.6 mmol/L (21-32); CHLORIDE 107 mmol/L (98-107); COR CA(FOR HYPOALB) 9.1 mg/dL (8.5-10.1); COR NA(FOR HYPERGLY) 137 mmol/L (136-145); CREATININE 0.69 mg/dL (0.55-1.02); SODIUM 136 mmol/L (136-145); TOTAL PROTEIN 4.8 g/dL (6.4-8.2); eGFR NON BLACK RACES > 60 (>60)
[2020-01-24 05:54] LABS: PLATELET MORPHOLOGY COMMENT NORMAL (NORMAL)
[2020-01-24] MEDS: PROCALAMINE 3 % 1,000 ML IV SCH ×2 (06:13→09:22)
--- NOTE | 2020-01-24 06:48 | RAD ---
HISTORYPneumonia SOBSTUDYPortable AP [id number] heart size. No change in position of left-sided PICC. Patchy pulmonary infiltrates are unchanged. The upper lobes remain relatively clear. No complicating pneumothorax or large pleural effusion is evident.IMPRESSIONPersistent pulmonary infiltrates consistent with pneumonia. There is no change since 2 days prior.Electronically signed by: KATELYN CHANEY (Jan 24, 2020 06:47:01)
[2020-01-24 07:00] LABS: ABG BASE EXCESS 0.3 mmol/L (-2.0-2.0); ABG HCO3 22.6 mmol/L (22-26)
[2020-01-24] MEDS ORDERED: VOLTAREN 1 % GEL MULTI DOSE TUBE TOP PRN (08:47)
[2020-01-24] MEDS: PULMICORT NEB TX 0.5 MG NEB SCH ×2 (08:50→21:05)
[2020-01-24] MEDS: DUONEB 0.5 MG/3 MG (3 mL) NEB SCH ×4 (08:50→21:05)
[2020-01-24] MEDS ORDERED: NORTRIPTYLINE 10 MG PO SCH (09:00)
--- NOTE | 2020-01-24 09:00 | PCM.PROG ---
Progress Note - Progress Note for Day of Date of Exam: 01/22/20 - Subjective Subjective: WAS ADMITTED FOR TREATMENT OF COVID-19, PNEUMONIA, HYPOXIA, AND HYPONATREMIA. TODAY, SHE IS ALERT AND ORIENTED, LYING IN BED ON MORNING ROUNDS. SHE IS NOTED WITH LABORED BREATHING TODAY. SHE REPORTS INCREASED SHORTNESS OF BREATH AND COUGH TODAY. ON EXAMINATION, HEART IS REGULAR IN RATE AND RHYTHM. BILATERAL LUNGS ARE NOTED WITH SCATTERED WHEEZING AND RHONCHI THROUGHOUT. ABDOMEN IS ROUND, SOFT, AND NON-TENDER WITH NORMAL BOWEL SOUNDS NOTED IN ALL QUADRANTS. HER VITALS THIS MORNING ARE: 98.0-76-21-91%RA-102/49. LABS WERE OBTAINED. ABNORMAL LAB VALUES INCLUDE THE FOLLOWING: RBC 3.28, HGB 10.6, HCT 30.7, GLUCOSE 145, CALCIUM 7.8, FERRITIN 329, CRP 75.30, TOTAL PROTEIN 5.7, ALBUMIN 2.2. BLOOD CULTURES ARE PENDING. CHEST XRAY WAS OBTAINED AND REVELAED: Status post left PICC line placement in good position. Slight decrease in the heart size with resolving pulmonary congestion. Slowly resolving infiltrates throughout both lungs. SHE IS CURRENTLY RECEIVING: NS AT 40 ML/HR, P ROCALAMINE AT 40 ML/HR, REMDESIVIR 100MG IV DAILY, SOLU-MEDROL 80MG IV Q8H, LEVAQUIN 500MG IV DAILY, FORTAZ 1G IV Q8H, DUONEBS QID, PULMICORT BID, TYLENOL 650MG PO Q4H PRN, LOVENOX 30MG SC BID, PLAQUENIL 200MG PO BID, PROTONIX 40MG IV BID, AND THE POTASSIUM AND MAGNESIUM PROTOCOLS. WE WILL CONTINUE WITH CURRENT PLAN OF CARE TODAY. OTHERWISE, WE PLAN TO FOLLOW UP WITH AM LABS AND CONTINUE TO MONITOR. - Past Medical Family Social History Past Med/Fam/Surg Hx: No changes since H&P Allergies: Allergies No Known Drug Allergies Allergy (Verified 01/20/20 19:04) - Review of Systems ROS: No change since H&P - Vital Signs and I&O's Vital Signs: Temperature 98.4 F Pulse Rate [Left Brachial] 86 Pulse Rate 85 Respiratory Rate 21 Blood Pressure [Left Arm] 105/54 Blood Pressure 100/51 O2 Sat by Pulse Oximetry 95 Intake and Output: Intake & Output 01/21/20 01/22/20 01/23/20 01/24/20 11:59 11:59 11:59 11:59 Intake Total 1120 / 1120 4100 / 4100 2970 / 2970 3633 / 3633 Balance 1120 / 1120 4100 / 4100 2970 / 2970 3633 / 3633 - Physical Exam Oriented: Person, Place Eyes: Normal Ear: Normal Nose: Normal Throat: Normal Respiratory: Generalized, Wheezes Cardiovascular: Tachycardia. negative: S3, S4 : Normal Auscultation: Bowel Sounds: Normal Palpation: Normal Tenderness: Normal Skin: Normal Musculoskeletal: Normal Psychiatric: Normal Mood Description: Calm Affect: Normal Speech Pattern: Clear, Appropriate - Laboratory and Diagnostics Result Diagrams: 01/24/20 04:30 01/24/20 04:30 Labs: 01/20/20 18:17 Blood Blood Culture - Preliminary 01/20/20 17:35 Blood Blood Culture - Preliminary Laboratory WBC 15.6 X10^3/uL (3.6-10.0) H 01/24/20 04:30 RBC 2.77 X10^6/uL (3.5-5.4) L 01/24/20 04:30 Hgb 9.0 g/dL (12.0-16.0) L 01/24/20 04:30 Hct 26.5 % (36.0-47.0) L 01/24/20 04:30 MCV 95.5 fL (80.0-100.0) 01/24/20 04:30 MCH 32.5 pg (27.0-34.0) 01/24/20 04:30 MCHC 34.0 g/dL (33.0-35.0) 01/24/20 04:30 RDW 13.3 % (11.6-16.5) 01/24/20 04:30 Plt Count 224 X10^3/uL (150.0-450.0) 01/24/20 04:30 Plt Count Comment Adequate (ADEQUATE) 01/24/20 04:30 MPV 9.6 fL (7.4-11.0) 01/24/20 04:30 Neut % (Auto) 90.9 % (42.0-75.0) H 01/24/20 04:30 Lymph % (Auto) 6.4 % (21.0-51.0) L 01/24/20 04:30 [place] % (Auto) 2.3 % (0.0-13.0) 01/24/20 04:30 Eos % (Auto) 0.0 % (0.9-2.9) L 01/24/20 04:30 Baso % (Auto) 0.4 % (0.2-1.0) 01/24/20 04:30 Neut # (Auto) 14.2 x10^3/uL (2.2-4.8) H 01/24/20 04:30 Lymph # (Auto) 1.0 X10^3/uL (1.3-2.9) L 01/24/20 04:30 [place] # (Auto) 0.4 x10^3/uL (0.3-0.8) 01/24/20 04:30 Eos # (Auto) 0.0 x10^3/uL (0.0-0.2) 01/24/20 04:30 Baso # (Auto) 0.1 X10^3/uL (0.0-0.1) 01/24/20 04:30 Absolute Nucleated RBC 0.1 /100WBC 01/24/20 04:30 Total Counted 100 01/24/20 04:30 Neutrophils % (Manual) 97 % (39-76) H 01/24/20 04:30 Lymphocytes % (Manual) 2 % (13-43) L 01/24/20 04:30 Monocytes % (Manual) 1 % (4-9) L 01/24/20 04:30 Plt Morphology Comment Normal (NORMAL) 01/24/20 04:30 RBC Morphology Normal (NORMAL) 01/24/20 04:30 Sample Site Rbra 01/24/20 06:54 ABG pH 7.500 (7.35-7.45) H 01/24/20 06:54 ABG pCO2 29.0 mmHg (35.0-45.0) L 01/24/20 06:54 ABG pO2 57.0 mmHg (80.0-100.0) L 01/24/20 06:54 ABG HCO3 22.6 mmol/L (22-26) 01/24/20 06:54 ABG O2 Saturation 92.0 % (90-100) 01/24/20 06:54 ABG Base Excess 0.3 mmol/L (-2.0-2.0) 01/24/20 06:54 Marquise Test Na 01/24/20 06:54 A-a Gradient 56.0 mmHg 01/24/20 06:54 FiO2 21.0 01/24/20 06:54 Blood Gas Comments Cyndie abg well-mtf 01/24/20 06:54 Sodium 136 mmol/L (136-145) 01/24/20 04:30 Corrected Sodium 137 mmol/L (136-145) 01/24/20 04:30 Potassium 3.5 mmol/L (3.5-5.1) 01/24/20 04:30 Chloride 107 mmol/L (98-107) 01/24/20 04:30 Carbon Dioxide 24.6 mmol/L (21-32) 01/24/20 04:30 BUN 18 mg/dL (7-18) 01/24/20 04:30 Creatinine 0.69 mg/dL (0.55-1.02) 01/24/20 04:30 Est GFR (MDRD) Af Amer > 60 (>60) 01/24/20 04:30 Est GFR (MDRD) Non-Af > 60 (>60) 01/24/20 04:30 Glucose 127 mg/dL (65-99) H 01/24/20 04:30 Lactic Acid 1.1 mmol/L (0.4-2.0) 01/20/20 17:35 Calcium 7.4 mg/dL (8.5-10.1) L 01/24/20 04:30 Corrected Calcium 9.1 mg/dL (8.5-10.1) 01/24/20 04:30 Magnesium 1.8 mg/dL (1.7-2.9) 01/21/20 04:20 Ferritin 367 ng/mL (8-252) H 01/24/20 04:30 Total Bilirubin 0.20 mg/dL (0.2-1.0) 01/24/20 04:30 AST 18 Units/L (15-37) 01/24/20 04:30 ALT 21 Units/L (12-78) 01/24/20 04:30 Alkaline Phosphatase 60 Units/L (46-116) 01/24/20 04:30 Troponin I < 0.02 ng/mL (0-1.5) 01/20/20 17:35 C-Reactive Protein 9.70 mg/L (0-3.0) H 01/24/20 04:30 B-Natriuretic Peptide 64.5 pg/mL (0-79) 01/20/20 17:35 Total Protein 4.8 g/dL (6.4-8.2) L 01/24/20 04:30 Albumin 1.9 g/dL (3.4-5.0) L 01/24/20 04:30 Globulin 2.9 g/dL (2.5-4.5) 01/24/20 04:30 Albumin/Globulin Ratio 0.7 Ratio (1.1-2.1) L 01/24/20 04:30 Prealbumin 13.5 mg/dL (18-35.7) L 01/21/20 04:20 Specimen Type Clean catch urine 01/20/20 21:11 Urine Color Yellow (YELLOW) 01/20/20 21:11 Urine Appearance Clear (CLEAR) 01/20/20 21:11 Urine pH 8.0 (5.0 - 8.0) 01/20/20 21:11 Ur Specific [place] 1.010 (1.000-1.030) 01/20/20 21:11 Urine Protein 2+ (NEGATIVE) 01/20/20 21:11 Urine Glucose (UA) Negative (NEGATIVE) 01/20/20 21:11 Urine Ketones 2+ (NEGATIVE) 01/20/20 21:11 Urine Occult Blood Negative (NEGATIVE) 01/20/20 21:11 Urine Nitrite Negative (NEGATIVE) 01/20/20 21:11 Urine Bilirubin Negative (NEGATIVE) 01/20/20 21:11 Urine Urobilinogen Normal (NORMAL) 01/20/20 21:11 Ur Leukocyte Esterase 1+ (NEGATIVE) 01/20/20 21:11 Urine RBC None seen /HPF (0-3) 01/20/20 21:11 Urine WBC 0-2 /HPF (0-5) 01/20/20 21:11 Ur Squamous Epith Cells Few /HPF (NEGATIVE) 01/20/20 21:11 Urine Bacteria Trace /HPF (NEGATIVE) 01/20/20 21:11 Ur Culture Indicated? No/not indicated 01/20/20 21:11 SARS-CoV-2 (PCR) Positive (NEGATIVE) A 01/20/20 21:50 - Plan (1) COVID-19 virus detected Status: Acute Plan: NS AT 40 ML/HR, PROCALAMINE AT 40 ML/HR, REMDESIVIR 100MG IV DAILY, SOLU-MEDROL 80MG IV Q8H, LEVAQUIN 500MG IV DAILY, FORTAZ 1G IV Q8H, DUONEBS QID, PULMICORT BID, TYLENOL 650MG PO Q4H PRN, LOVENOX 30MG SC BID, PLAQUENIL 200MG PO BID, PROTONIX 40MG IV BID, AND THE POTASSIUM AND MAGNESIUM PROTOCOLS. (2) Pneumonia of both lower lobes Status: Acute Qualifiers: Pneumonia type: due to unspecified organism Qualified Code(s): J18.9 - Pneumonia, unspecified organism (3) Hypoxia Status: Acute (4) Hyponatremia Status: Acute (5) Altered mental status Status: Acute Qualifiers: Altered mental status type: disorientation Qualified Code(s): R41.0 - Disorientation, unspecified
--- NOTE | 2020-01-24 09:03 | PCM.PROG ---
Progress Note - Progress Note for Day of Date of Exam: 01/23/20 - Subjective Subjective: WAS ADMITTED FOR TREATMENT OF COVID-19, PNEUMONIA, HYPOXIA, AND HYPONATREMIA. TODAY, SHE CONTINUES WITH SHORTNESS OF BREATH AND COUGH, BUT REPORTS SLIGHT IMPROVEMENT IN SYMPTOMS. ON EXAMINATION, HEART IS REGULAR IN RATE AND RHYTHM. BILATERAL LUNGS ARE NOTED WITH SCATTERED WHEEZING AND RHONCHI THROUGHOUT. ABDOMEN IS ROUND, SOFT, AND NON-TENDER WITH NORMAL BOWEL SOUNDS NOTED IN ALL QUADRANTS. HER VITALS THIS MORNING ARE: 97.9-81-20-92%RA-95/73. LABS WERE OBTAINED. ABNORMAL LAB VALUES INCLUDE THE FOLLOWING: WBC 12.2, RBC 2.83, HGB 9.3, HCT 27.1, GLUCOSE 143, CALCIUM 7.6, FERRITIN 423, TOTAL BILI 0.10, CRP 26.50, TOTAL PROTEIN 5.1, ALBUMIN 2.0. SHE IS CURRENTLY RECEIVING: NS AT 40 ML/HR, PROCALAMINE AT 40 ML/HR, REMDESIVIR 100MG IV DAILY, SOLU-MEDROL 80MG IV Q8H, LEVAQUIN 500MG IV DAILY, FORTAZ 1G IV Q8H, DUONEBS QID, PULMICORT BID, TYLENOL 650MG PO Q4H PRN, LOVENOX 30MG SC BID, PLAQUENIL 200MG PO BID, PROTONIX 40MG IV BID, AND THE POTASSIUM AND MAGNESIUM PROTOCOLS. WE WILL CONTINUE WITH CURRENT PLAN OF CARE TODAY. OTHERWISE, WE PLAN TO FOLLOW UP WITH AM LABS AND CONTINUE TO MONITOR. - Past Medical Family Social History Past Med/Fam/Surg Hx: No changes since H&P Allergies: Allergies No Known Drug Allergies Allergy (Verified 01/20/20 19:04) - Review of Systems ROS: No change since H&P - Vital Signs and I&O's Vital Signs: Temperature 98.4 F Pulse Rate [Left Brachial] 86 Pulse Rate 85 Respiratory Rate 21 Blood Pressure [Left Arm] 105/54 Blood Pressure 100/51 O2 Sat by Pulse Oximetry 95 Intake and Output: Intake & Output 01/21/20 01/22/20 01/23/20 01/24/20 11:59 11:59 11:59 11:59 Intake Total 1120 / 1120 4100 / 4100 2970 / 2970 3633 / 3633 Balance 1120 / 1120 4100 / 4100 2970 / 2970 3633 / 3633 - Physical Exam Oriented: Person, Place Eyes: Normal Ear: Normal Nose: Normal Throat: Normal Respiratory: Generalized, Wheezes Cardiovascular: Tachycardia. negative: S3, S4 : Normal Auscultation: Bowel Sounds: Normal Palpation: Normal Tenderness: Normal Skin: Normal Musculoskeletal: Normal Psychiatric: Normal Mood Description: Calm Affect: Normal Speech Pattern: Clear, Appropriate - Laboratory and Diagnostics Result Diagrams: 01/24/20 04:30 01/24/20 04:30 Labs: 01/20/20 18:17 Blood Blood Culture - Preliminary 01/20/20 17:35 Blood Blood Culture - Preliminary Laboratory WBC 15.6 X10^3/uL (3.6-10.0) H 01/24/20 04:30 RBC 2.77 X10^6/uL (3.5-5.4) L 01/24/20 04:30 Hgb 9.0 g/dL (12.0-16.0) L 01/24/20 04:30 Hct 26.5 % (36.0-47.0) L 01/24/20 04:30 MCV 95.5 fL (80.0-100.0) 01/24/20 04:30 MCH 32.5 pg (27.0-34.0) 01/24/20 04:30 MCHC 34.0 g/dL (33.0-35.0) 01/24/20 04:30 RDW 13.3 % (11.6-16.5) 01/24/20 04:30 Plt Count 224 X10^3/uL (150.0-450.0) 01/24/20 04:30 Plt Count Comment Adequate (ADEQUATE) 01/24/20 04:30 MPV 9.6 fL (7.4-11.0) 01/24/20 04:30 Neut % (Auto) 90.9 % (42.0-75.0) H 01/24/20 04:30 Lymph % (Auto) 6.4 % (21.0-51.0) L 01/24/20 04:30 [place] % (Auto) 2.3 % (0.0-13.0) 01/24/20 04:30 Eos % (Auto) 0.0 % (0.9-2.9) L 01/24/20 04:30 Baso % (Auto) 0.4 % (0.2-1.0) 01/24/20 04:30 Neut # (Auto) 14.2 x10^3/uL (2.2-4.8) H 01/24/20 04:30 Lymph # (Auto) 1.0 X10^3/uL (1.3-2.9) L 01/24/20 04:30 [place] # (Auto) 0.4 x10^3/uL (0.3-0.8) 01/24/20 04:30 Eos # (Auto) 0.0 x10^3/uL (0.0-0.2) 01/24/20 04:30 Baso # (Auto) 0.1 X10^3/uL (0.0-0.1) 01/24/20 04:30 Absolute Nucleated RBC 0.1 /100WBC 01/24/20 04:30 Total Counted 100 01/24/20 04:30 Neutrophils % (Manual) 97 % (39-76) H 01/24/20 04:30 Lymphocytes % (Manual) 2 % (13-43) L 01/24/20 04:30 Monocytes % (Manual) 1 % (4-9) L 01/24/20 04:30 Plt Morphology Comment Normal (NORMAL) 01/24/20 04:30 RBC Morphology Normal (NORMAL) 01/24/20 04:30 Sample Site [facility] 01/24/20 06:54 ABG pH 7.500 (7.35-7.45) H 01/24/20 06:54 ABG pCO2 29.0 mmHg (35.0-45.0) L 01/24/20 06:54 ABG pO2 57.0 mmHg (80.0-100.0) L 01/24/20 06:54 ABG HCO3 22.6 mmol/L (22-26) 01/24/20 06:54 ABG O2 Saturation 92.0 % (90-100) 01/24/20 06:54 ABG Base Excess 0.3 mmol/L (-2.0-2.0) 01/24/20 06:54 Marquies Test Na 01/24/20 06:54 A-a Gradient 56.0 mmHg 01/24/20 06:54 FiO2 21.0 01/24/20 06:54 Blood Gas Comments Cyndie abg well-mtf 01/24/20 06:54 Sodium 136 mmol/L (136-145) 01/24/20 04:30 Corrected Sodium 137 mmol/L (136-145) 01/24/20 04:30 Potassium 3.5 mmol/L (3.5-5.1) 01/24/20 04:30 Chloride 107 mmol/L (98-107) 01/24/20 04:30 Carbon Dioxide 24.6 mmol/L (21-32) 01/24/20 04:30 BUN 18 mg/dL (7-18) 01/24/20 04:30 Creatinine 0.69 mg/dL (0.55-1.02) 01/24/20 04:30 Est GFR (MDRD) Af Amer > 60 (>60) 01/24/20 04:30 Est GFR (MDRD) Non-Af > 60 (>60) 01/24/20 04:30 Glucose 127 mg/dL (65-99) H 01/24/20 04:30 Lactic Acid 1.1 mmol/L (0.4-2.0) 01/20/20 17:35 Calcium 7.4 mg/dL (8.5-10.1) L 01/24/20 04:30 Corrected Calcium 9.1 mg/dL (8.5-10.1) 01/24/20 04:30 Magnesium 1.8 mg/dL (1.7-2.9) 01/21/20 04:20 Ferritin 367 ng/mL (8-252) H 01/24/20 04:30 Total Bilirubin 0.20 mg/dL (0.2-1.0) 01/24/20 04:30 AST 18 Units/L (15-37) 01/24/20 04:30 ALT 21 Units/L (12-78) 01/24/20 04:30 Alkaline Phosphatase 60 Units/L (46-116) 01/24/20 04:30 Troponin I < 0.02 ng/mL (0-1.5) 01/20/20 17:35 C-Reactive Protein 9.70 mg/L (0-3.0) H 01/24/20 04:30 B-Natriuretic Peptide 64.5 pg/mL (0-79) 01/20/20 17:35 Total Protein 4.8 g/dL (6.4-8.2) L 01/24/20 04:30 Albumin 1.9 g/dL (3.4-5.0) L 01/24/20 04:30 Globulin 2.9 g/dL (2.5-4.5) 01/24/20 04:30 Albumin/Globulin Ratio 0.7 Ratio (1.1-2.1) L 01/24/20 04:30 Prealbumin 13.5 mg/dL (18-35.7) L 01/21/20 04:20 Specimen Type Clean catch urine 01/20/20 21:11 Urine Color Yellow (YELLOW) 01/20/20 21:11 Urine Appearance Clear (CLEAR) 01/20/20 21:11 Urine pH 8.0 (5.0 - 8.0) 01/20/20 21:11 Ur Specific [place] 1.010 (1.000-1.030) 01/20/20 21:11 Urine Protein 2+ (NEGATIVE) 01/20/20 21:11 Urine Glucose (UA) Negative (NEGATIVE) 01/20/20 21:11 Urine Ketones 2+ (NEGATIVE) 01/20/20 21:11 Urine Occult Blood Negative (NEGATIVE) 01/20/20 21:11 Urine Nitrite Negative (NEGATIVE) 01/20/20 21:11 Urine Bilirubin Negative (NEGATIVE) 01/20/20 21:11 Urine Urobilinogen Normal (NORMAL) 01/20/20 21:11 Ur Leukocyte Esterase 1+ (NEGATIVE) 01/20/20 21:11 Urine RBC None seen /HPF (0-3) 01/20/20 21:11 Urine WBC 0-2 /HPF (0-5) 01/20/20 21:11 Ur Squamous Epith Cells Few /HPF (NEGATIVE) 01/20/20 21:11 Urine Bacteria Trace /HPF (NEGATIVE) 01/20/20 21:11 Ur Culture Indicated? No/not indicated 01/20/20 21:11 SARS-CoV-2 (PCR) Positive (NEGATIVE) A 01/20/20 21:50 - Plan (1) COVID-19 virus detected Status: Acute Plan: NS AT 40 ML/HR, PROCALAMINE AT 40 ML/HR, REMDESIVIR 100MG IV DAILY, SOLU- MEDROL 80MG IV Q8H, LEVAQUIN 500MG IV DAILY, FORTAZ 1G IV Q8H, DUONEBS QID, PULMICORT BID, TYLENOL 650MG PO Q4H PRN, LOVENOX 30MG SC BID, PLAQUENIL 200MG PO BID, PROTONIX 40MG IV BID, AND THE POTASSIUM AND MAGNESIUM PROTOCOLS. (2) Pneumonia of both lower lobes Status: Acute Qualifiers: Pneumonia type: due to unspecified organism Qualified Code(s): J18.9 - Pneumonia, unspecified organism (3) Hypoxia Status: Acute (4) Hyponatremia Status: Acute (5) Altered mental status Status: Acute Qualifiers: Altered mental status type: disorientation Qualified Code(s): R41.0 - Disorientation, unspecified
--- NOTE | 2020-01-24 09:06 | PCM.PROG ---
Progress Note - Progress Note for Day of Date of Exam: 01/24/20 - Subjective Subjective: WAS ADMITTED FOR TREATMENT OF COVID-19, PNEUMONIA, HYPOXIA, AND HYPONATREMIA. HYPONATREMIA HAS RESOLVED. STAFF REPORTS THAT HER OXYGEN SATURATIONS DO OCCATIONALLY FALL TO THE 80s WHEN AMBULATING. ON EXAMINATION, SHE CONTINUES WITH SHORTNESS OF BREATH AND COUGH, BUT REPORTS SLIGHT IMPROVEMENT IN SYMPTOMS. ON EXAMINATION, HEART IS REGULAR IN RATE AND RHYTHM. BILATERAL LUNGS ARE NOTED WITH SCATTERED WHEEZING AND RHONCHI THROUGHOUT. ABDOMEN IS ROUND, SOFT, AND NON-TENDER WITH NORMAL BOWEL SOUNDS NOTED IN ALL QUADRANTS. HER VITALS THIS MORNING ARE: 98.4-86-21-95%-105/54. LABS WERE OBTAINED. ABNORMAL LAB VALUES INCLUDE THE FOLLOWING: WBC 15.6, RBC 2.77, HGB 9.0, HCT 26.5, GLUCOSE 127, CALCIUM 7.4, FERRITIN 367, CRP 9.70, TOTAL PROTEIN 4.8, ALBUMIN 1.9. SHE IS CURRENTLY RECEIVING: NS AT 40 ML/HR, PROCALAMINE AT 40 ML/HR, REMDESIVIR 100MG IV DAILY, SOLU-MEDROL 80MG IV Q8H, LE [place] 500MG IV DAILY, FORTAZ 1G IV Q8H, DUONEBS QID, PULMICORT BID, TYLENOL 650MG PO Q4H PRN, LOVENOX 30MG SC BID, PLAQUENIL 200MG PO BID, PROTONIX 40MG IV BID, AND THE POTASSIUM AND MAGNESIUM PROTOCOLS. WE WILL CONTINUE WITH CURRENT PLAN OF CARE TODAY. OTHERWISE, WE PLAN TO FOLLOW UP WITH AM LABS AND CONTINUE TO MONITOR. - Past Medical Family Social History Past Med/Fam/Surg Hx: No changes since H&P Allergies: Allergies No Known Drug Allergies Allergy (Verified 01/20/20 19:04) - Review of Systems ROS: No change since H&P - Vital Signs and I&O's Vital Signs: Temperature 98.4 F Pulse Rate [Left Brachial] 86 Pulse Rate 85 Respiratory Rate 21 Blood Pressure [Left Arm] 105/54 Blood Pressure 100/51 O2 Sat by Pulse Oximetry 95 Intake and Output: Intake & Output 01/21/20 01/22/20 01/23/20 01/24/20 11:59 11:59 11:59 11:59 Intake Total 1120 / 1120 4100 / 4100 2970 / 2970 3633 / 3633 Balance 1120 / 1120 4100 / 4100 2970 / 2970 363 / 3633 - Physical Exam Oriented: Person, Place Eyes: Normal Ear: Normal Nose: Normal Throat: Normal Respiratory: Generalized, Wheezes Cardiovascular: Tachycardia. negative: S3, S4 : Normal Auscultation: Bowel Sounds: Normal Palpation: Normal Tenderness: Normal Skin: Normal Musculoskeletal: Normal Psychiatric: Normal Mood Description: Calm Affect: Normal Speech Pattern: Clear, Appropriate - Laboratory and Diagnostics Result Diagrams: 01/24/20 04:30 01/24/20 04:30 Labs: 01/20/20 18:17 Blood Blood Culture - Preliminary 01/20/20 17:35 Blood Blood Culture - Preliminary Laboratory WBC 15.6 X10^3/uL (3.6-10.0) H 01/24/20 04:30 RBC 2.77 X10^6/uL (3.5-5.4) L 01/24/20 04:30 Hgb 9.0 g/dL (12.0-16.0) L 01/24/20 04:30 Hct 26.5 % (36.0-47.0) L 01/24/20 04:30 MCV 95.5 fL (80.0-100.0) 01/24/20 04:30 MCH 32.5 pg (27.0-34.0) 01/24/20 04:30 MCHC 34.0 g/dL (33.0-35.0) 01/24/20 04:30 RDW 13.3 % (11.6-16.5) 01/24/20 04:30 Plt Count 224 X10^3/uL (150.0-450.0) 01/24/20 04:30 Plt Count Comment Adequate (ADEQUATE) 01/24/20 04:30 MPV 9.6 fL (7.4-11.0) 01/24/20 04:30 Neut % (Auto) 90.9 % (42.0-75.0) H 01/24/20 04:30 Lymph % (Auto) 6.4 % (21.0-51.0) L 01/24/20 04:30 [place] % (Auto) 2.3 % (0.0-13.0) 01/24/20 04:30 Eos % (Auto) 0.0 % (0.9-2.9) L 01/24/20 04:30 Baso % (Auto) 0.4 % (0.2-1.0) 01/24/20 04:30 Neut # (Auto) 14.2 x10^3/uL (2.2-4.8) H 01/24/20 04:30 Lymph # (Auto) 1.0 X10^3/uL (1.3-2.9) L 01/24/20 04:30 [place] # (Auto) 0.4 x10^3/uL (0.3-0.8) 01/24/20 04:30 Eos # (Auto) 0.0 x10^3/uL (0.0-0.2) 01/24/20 04:30 Baso # (Auto) 0.1 X10^3/uL (0.0-0.1) 01/24/20 04:30 Absolute Nucleated RBC 0.1 /100WBC 01/24/20 04:30 Total Counted 100 01/24/20 04:30 Neutrophils % (Manual) 97 % (39-76) H 01/24/20 04:30 Lymphocytes % (Manual) 2 % (13-43) L 01/24/20 04:30 Monocytes % (Manual) 1 % (4-9) L 01/24/20 04:30 Plt Morphology Comment Normal (NORMAL) 01/24/20 04:30 RBC Morphology Normal (NORMAL) 01/24/20 04:30 Sample Site Rbra 01/24/20 06:54 ABG pH 7.500 (7.35-7.45) H 01/24/20 06:54 ABG pCO2 29.0 mmHg (35.0-45.0) L 01/24/20 06:54 ABG pO2 57.0 mmHg (80.0-100.0) L 01/24/20 06:54 ABG HCO3 22.6 mmol/L (22-26) 01/24/20 06:54 ABG O2 Saturation 92.0 % (90-100) 01/24/20 06:54 ABG Base Excess 0.3 mmol/L (-2.0-2.0) 01/24/20 06:54 Marquise Test Na 01/24/20 06:54 A-a Gradient 56.0 mmHg 01/24/20 06:54 FiO2 21.0 01/24/20 06:54 Blood Gas Comments Cyndie abg well-mtf 01/24/20 06:54 Sodium 136 mmol/L (136-145) 01/24/20 04:30 Corrected Sodium 137 mmol/L (136-145) 01/24/20 04:30 Potassium 3.5 mmol/L (3.5-5.1) 01/24/20 04:30 Chloride 107 mmol/L (98-107) 01/24/20 04:30 Carbon Dioxide 24.6 mmol/L (21-32) 01/24/20 04:30 BUN 18 mg/dL (7-18) 01/24/20 04:30 Creatinine 0.69 mg/dL (0.55-1.02) 01/24/20 04:30 Est GFR (MDRD) Af Amer > 60 (>60) 01/24/20 04:30 Est GFR (MDRD) Non-Af > 60 (>60) 01/24/20 04:30 Glucose 127 mg/dL (65-99) H 01/24/20 04:30 Lactic Acid 1.1 mmol/L (0.4-2.0) 01/20/20 17:35 Calcium 7.4 mg/dL (8.5-10.1) L 01/24/20 04:30 Corrected Calcium 9.1 mg/dL (8.5-10.1) 01/24/20 04:30 Magnesium 1.8 mg/dL (1.7-2.9) 01/21/20 04:20 Ferritin 367 ng/mL (8-252) H 01/24/20 04:30 Total Bilirubin 0.20 mg/dL (0.2-1.0) 01/24/20 04:30 AST 18 Units/L (15-37) 01/24/20 04:30 ALT 21 Units/L (12-78) 01/24/20 04:30 Alkaline Phosphatase 60 Units/L (46-116) 01/24/20 04:30 Troponin I < 0.02 ng/mL (0-1.5) 01/20/20 17:35 C-Reactive Protein 9.70 mg/L (0-3.0) H 01/24/20 04:30 B-Natriuretic Peptide 64.5 pg/mL (0-79) 01/20/20 17:35 Total Protein 4.8 g/dL (6.4-8.2) L 01/24/20 04:30 Albumin 1.9 g/dL (3.4-5.0) L 01/24/20 04:30 Globulin 2.9 g/dL (2.5-4.5) 01/24/20 04:30 Albumin/Globulin Ratio 0.7 Ratio (1.1-2.1) L 01/24/20 04:30 Prealbumin 13.5 mg/dL (18-35.7) L 01/21/20 04:20 Specimen Type Clean catch urine 01/20/20 21:11 Urine Color Yellow (YELLOW) 01/20/20 21:11 Urine Appearance Clear (CLEAR) 01/20/20 21:11 Urine pH 8.0 (5.0 - 8.0) 01/20/20 21:11 Ur Specific [place] 1.010 (1.000-1.030) 01/20/20 21:11 Urine Protein 2+ (NEGATIVE) 01/20/20 21:11 Urine Glucose (UA) Negative (NEGATIVE) 01/20/20 21:11 Urine Ketones 2+ (NEGATIVE) 01/20/20 21:11 Urine Occult Blood Negative (NEGATIVE) 01/20/20 21:11 Urine Nitrite Negative (NEGATIVE) 01/20/20 21:11 Urine Bilirubin Negative (NEGATIVE) 01/20/20 21:11 Urine Urobilinogen Normal (NORMAL) 01/20/20 21:11 Ur Leukocyte Esterase 1+ (NEGATIVE) 01/20/20 21:11 Urine RBC None seen /HPF (0-3) 01/20/20 21:11 Urine WBC 0-2 /HPF (0-5) 01/20/20 21:11 Ur Squamous Epith Cells Few /HPF (NEGATIVE) 01/20/20 21:11 Urine Bacteria Trace /HPF (NEGATIVE) 01/20/20 21:11 Ur Culture Indicated? No/not indicated 01/20/20 21:11 SARS-CoV-2 (PCR) Positive (NEGATIVE) A 01/20/20 21:50 - Plan (1) COVID-19 virus detected Status: Acute Plan: NS AT 40 ML/HR, PROCALAMINE AT 40 ML/HR, REMDESIVIR 100MG IV DAILY, SOLU- MEDROL 80MG IV Q8H, LEVAQUIN 500MG IV DAILY, FORTAZ 1G IV Q8H, DUONEBS QID, PULMICORT BID, TYLENOL 650MG PO Q4H PRN, LOVENOX 30MG SC BID, PLAQUENIL 200MG PO BID, PROTONIX 40MG IV BID, AND THE POTASSIUM AND MAGNESIUM PROTOCOLS. (2) Pneumonia of both lower lobes Status: Acute Qualifiers: Pneumonia type: due to unspecified organism Qualified Code(s): J18.9 - Pneumonia, unspecified organism (3) Hypoxia Status: Acute (4) Hyponatremia Status: Acute (5) Altered mental status Status: Acute Qualifiers: Altered mental status type: disorientation Qualified Code(s): R41.0 - Disorientation, unspecified
[2020-01-24] MEDS: LOVENOX INJ 30 MG SYR SC SCH ×2 (09:20→20:02)
[2020-01-24] MEDS: ZINC SULFATE PO SCH ×2 (09:21→20:04)
[2020-01-24] MEDS: PLAQUENIL PO SCH ×2 (09:21→20:02)
[2020-01-24] MEDS: SYNTHROID 75 mcg TAB PO SCH (09:21)
[2020-01-24] MEDS: REMDESIVIR (INVESTIGATIONAL DRUG GS-5734) 100 MG in NS 250 ML IV 250 ML IV SCH (09:22)
[2020-01-24] MEDS: PROTONIX INJ 40 MG VIAL IVP SCH ×2 (09:22→20:02)
[2020-01-24] MEDS: ESTRACE PO SCH (09:22)
[2020-01-24] MEDS: K-DUR TAB 20 MEQ PO PRN (09:23)
[2020-01-24] MEDS: [UNRECOGNIZED DRUG - OTHER] PO SCH ×2 (09:45→12:02)
[2020-01-24] MEDS: LEVAQUIN PREMIX IV 500 MG 500 MG/100 ML BAG IV SCH (10:40)
[2020-01-24] MEDS: ROBITUSSIN DM PO PRN (20:02)
[2020-01-25] MEDS: FORTAZ or TAZICEF VIAL INJ 1 G in NS 100 ML IV + SPIKE MINIBAG* 100 ML IV SCH ×3 (05:07→21:22)
[2020-01-25] MEDS: NS 1000 ML 1,000 ML IV SCH ×2 (05:08→20:23)
[2020-01-25] MEDS: SOLU-Medrol 40 MG VIAL IVP SCH ×3 (05:08→21:23)
[2020-01-25 05:34] LABS: BASOPHILS % (AUTO) 0 % (0.2-1.0); HEMATOCRIT 27.9 % (36.0-47.0); HEMOGLOBIN 9.5 g/dL (12.0-16.0); LYMPHOCYTES % (AUTO) 6.5 % (21.0-51.0); MEAN CORPUSCULAR HEMOGLOBIN 32.6 pg (27.0-34.0); MEAN CORPUSCULAR HGB CONC 34.2 g/dL (33.0-35.0); MEAN CORPUSCULAR VOLUME 95.2 fL (80.0-100.0); MEAN PLATELET VOLUME 9.2 fL (7.4-11.0); MONOCYTES # (AUTO) 0.4 x10^3/uL (0.3-0.8); MONOCYTES % (AUTO) 2.6 % (0.0-13.0); NEUTROPHILS # (AUTO) 13.7 x10^3/uL (2.2-4.8); NEUTROPHILS % (AUTO) 90.9 % (42.0-75.0); PLATELET COUNT 236 X10^3/uL (150.0-450.0); RED BLOOD COUNT 2.93 X10^6/uL (3.5-5.4); RED CELL DISTRIBUTION WIDTH 13.5 % (11.6-16.5); WHITE BLOOD COUNT 15.1 X10^3/uL (3.6-10.0)
[2020-01-25 05:47] LABS: ALANINE AMINOTRANSFERASE 22 Units/L (12-78); ALBUMIN 1.9 g/dL (3.4-5.0); ALKALINE PHOSPHATASE 70 Units/L (46-116); ASPARTATE AMINO TRANSFERASE 16 Units/L (15-37); BLOOD UREA NITROGEN 19 mg/dL (7-18); CALCIUM 7.2 mg/dL (8.5-10.1); CARBON DIOXIDE 23.5 mmol/L (21-32); CHLORIDE 107 mmol/L (98-107); COR CA(FOR HYPOALB) 8.9 mg/dL (8.5-10.1); COR NA(FOR HYPERGLY) 138 mmol/L (136-145); CREATININE 0.69 mg/dL (0.55-1.02); SODIUM 137 mmol/L (136-145); TOTAL PROTEIN 4.8 g/dL (6.4-8.2); eGFR NON BLACK RACES > 60 (>60)
[2020-01-25 06:25] LABS: BAND NEUTROPHILS % 1 % (0-10); PLATELET MORPHOLOGY COMMENT NORMAL (NORMAL)
[2020-01-25] MEDS: K-DUR TAB 20 MEQ PO PRN (08:45)
[2020-01-25] MEDS: LEVAQUIN PREMIX IV 500 MG 500 MG/100 ML BAG IV SCH (08:46)
[2020-01-25] MEDS: ESTRACE PO SCH (08:46)
[2020-01-25] MEDS: LOVENOX INJ 30 MG SYR SC SCH ×2 (08:46→20:23)
[2020-01-25] MEDS: SYNTHROID 75 mcg TAB PO SCH (08:47)
[2020-01-25] MEDS: PROTONIX INJ 40 MG VIAL IVP SCH ×2 (08:47→20:24)
[2020-01-25] MEDS: PLAQUENIL PO SCH ×2 (08:48→20:24)
[2020-01-25] MEDS: [UNRECOGNIZED DRUG - OTHER] PO SCH (08:48)
[2020-01-25] MEDS: ZINC SULFATE PO SCH ×2 (08:51→20:24)
[2020-01-25] MEDS: PROCALAMINE 3 % 1,000 ML IV SCH (08:52)
--- NOTE | 2020-01-25 09:34 | PCM.PROG ---
Progress Note - Progress Note for Day of Date of Exam: 01/25/20 - Subjective Subjective: WAS ADMITTED FOR TREATMENT OF COVID-19, PNEUMONIA, HYPOXIA, AND HYPONATREMIA. HYPONATREMIA HAS RESOLVED. TODAY, SHE IS ALERT AND ORIENTED, SITTING UP IN BED ON MORNING ROUNDS. SHE CONTINUES WITH SHORTNESS OF BREATH AND COUGH, BUT REPORTS SLIGHT IMPROVEMENT IN SYMPTOMS. ON EXAMINATION, HEART IS REGULAR IN RATE AND RHYTHM. BILATERAL LUNGS ARE NOTED WITH SCATTERED WHEEZING AND RHONCHI THROUGHOUT. ABDOMEN IS ROUND, SOFT, AND NON-TENDER WITH NORMAL BOWEL SOUNDS NOTED IN ALL QUADRANTS. HER VITALS THIS MORNING ARE: 98.3-98-21-93%-113/58. LABS WERE OBTAINED. ABNORMAL LAB VALUES INCLUDE THE FOLLOWING: WBC 15.1, RBC 2.93, HGB 9.5, HCT 27.9, POTASSIUM 3.4, BUN 19, GLUCOSE 122, CALCIUM 7.2, FERRITIN 337, CRP 4.80, TOTAL PROTEIN 4.8, ALBUMIN 1.9. SHE IS CURRENTLY RECEIVING: NS AT 40 ML/HR, PROCALAMINE AT 40 ML/HR, REMDESIVIR 100MG IV DAILY, SOLU-MEDROL 80MG IV Q8H, LEVAQUIN 500MG IV DAILY, FORTAZ 1G IV Q8H, DUONEBS QID, PULMICORT BID, TYLENOL 650MG PO Q4H PRN, LOVENOX 30MG SC BID, PLAQUENIL 200MG PO BID, PROTONIX 40MG IV BID, AND THE POTASSIUM AND MAGNESIUM PROTOCOLS. WE WILL CONTINUE WITH CURRENT PLAN OF CARE TODAY. OTHERWISE, WE PLAN TO FOLLOW UP WITH AM LABS AND CONTINUE TO MONITOR. - Past Medical Family Social History Past Med/Fam/Surg Hx: No changes since H&P Allergies: Allergies No Known Drug Allergies Allergy (Verified 01/20/20 19:04) - Review of Systems ROS: No change since H&P - Vital Signs and I&O's Vital Signs: Temperature 98.3 F Pulse Rate [Apical] 98 Pulse Rate [Left Brachial] 86 Pulse Rate 85 Respiratory Rate 21 Blood Pressure [Right Arm] 113/58 Blood Pressure [Left Arm] 105/54 Blood Pressure 100/51 O2 Sat by Pulse Oximetry 93 Intake and Output: Intake & Output 01/22/20 01/23/20 01/24/20 01/25/20 11:59 11:59 11:59 11:59 Intake Total 4100 / 4100 2970 / 2970 3633 / 3633 3317 / 3317 Balance 4100 / 4100 2970 / 2970 3633 / 3633 3317 / 3317 - Physical Exam Oriented: Person, Place Eyes: Normal Ear: Normal Nose: Normal Throat: Normal Respiratory: Generalized, Wheezes Cardiovascular: Tachycardia. negative: S3, S4 : Normal Auscultation: Bowel Sounds: Normal Palpation: Normal Tenderness: Normal Skin: Normal Musculoskeletal: Normal Psychiatric: Normal Mood Description: Calm Affect: Normal Speech Pattern: Clear, Appropriate - Laboratory and Diagnostics Result Diagrams: 01/25/20 04:16 01/25/20 04:16 Labs: 01/20/20 18:17 Blood Blood Culture - Preliminary 01/20/20 17:35 Blood Blood Culture - Preliminary Laboratory WBC 15.1 X10^3/uL (3.6-10.0) H 01/25/20 04:16 RBC 2.93 X10^6/uL (3.5-5.4) L 01/25/20 04:16 Hgb 9.5 g/dL (12.0-16.0) L 01/25/20 04:16 Hct 27.9 % (36.0-47.0) L 01/25/20 04:16 MCV 95.2 fL (80.0-100.0) 01/25/20 04:16 MCH 32.6 pg (27.0-34.0) 01/25/20 04:16 MCHC 34.2 g/dL (33.0-35.0) 01/25/20 04:16 RDW 13.5 % (11.6-16.5) 01/25/20 04:16 Plt Count 236 X10^3/uL (150.0-450.0) 01/25/20 04:16 Plt Count Comment Adequate (ADEQUATE) 01/25/20 04:16 MPV 9.2 fL (7.4-11.0) 01/25/20 04:16 Neut % (Auto) 90.9 % (42.0-75.0) H 01/25/20 04:16 Lymph % (Auto) 6.5 % (21.0-51.0) L 01/25/20 04:16 [place] % (Auto) 2.6 % (0.0-13.0) 01/25/20 04:16 Eos % (Auto) 0.0 % (0.9-2.9) L 01/25/20 04:16 Baso % (Auto) 0 % (0.2-1.0) L 01/25/20 04:16 Neut # (Auto) 13.7 x10^3/uL (2.2-4.8) H 01/25/20 04:16 Lymph # (Auto) 1.0 X10^3/uL (1.3-2.9) L 01/25/20 04:16 [place] # (Auto) 0.4 x10^3/uL (0.3-0.8) 01/25/20 04:16 Eos # (Auto) 0.0 x10^3/uL (0.0-0.2) 01/25/20 04:16 Baso # (Auto) 0.0 X10^3/uL (0.0-0.1) 01/25/20 04:16 Absolute Nucleated RBC 0.0 /100WBC 01/25/20 04:16 Total Counted 100 01/25/20 04:16 Neutrophils % (Manual) 92 % (39-76) H 01/25/20 04:16 Band Neutrophils % 1 % (0-10) 01/25/20 04:16 Lymphocytes % (Manual) 6 % (13-43) L 01/25/20 04:16 Monocytes % (Manual) 1 % (4-9) L 01/25/20 04:16 Plt Morphology Comment Normal (NORMAL) 01/25/20 04:16 RBC Morphology Normal (NORMAL) 01/25/20 04:16 Sample Site Rbra 01/24/20 06:54 ABG pH 7.500 (7.35-7.45) H 01/24/20 06:54 ABG pCO2 29.0 mmHg (35.0-45.0) L 01/24/20 06:54 ABG pO2 57.0 mmHg (80.0-100.0) L 01/24/20 06:54 ABG HCO3 22.6 mmol/L (22-26) 01/24/20 06:54 ABG O2 Saturation 92.0 % (90-100) 01/24/20 06:54 ABG Base Excess 0.3 mmol/L (-2.0-2.0) 01/24/20 06:54 [place]ise Test Na 01/24/20 06:54 A-a Gradient 56.0 mmHg 01/24/20 06:54 FiO2 21.0 01/24/20 06:54 Blood Gas Comments Cyndie abg well-mtf 01/24/20 06:54 Sodium 137 mmol/L (136-145) 01/25/20 04:16 Corrected Sodium 138 mmol/L (136-145) 01/25/20 04:16 Potassium 3.4 mmol/L (3.5-5.1) L 01/25/20 04:16 Chloride 107 mmol/L (98-107) 01/25/20 04:16 Carbon Dioxide 23.5 mmol/L (21-32) 01/25/20 04:16 BUN 19 mg/dL (7-18) H 01/25/20 04:16 Creatinine 0.69 mg/dL (0.55-1.02) 01/25/20 04:16 Est GFR (MDRD) Af Amer > 60 (>60) 01/25/20 04:16 Est GFR (MDRD) Non-Af > 60 (>60) 01/25/20 04:16 Glucose 122 mg/dL (65-99) H 01/25/20 04:16 Lactic Acid 1.1 mmol/L (0.4-2.0) 01/20/20 17:35 Calcium 7.2 mg/dL (8.5-10.1) L 01/25/20 04:16 Corrected Calcium 8.9 mg/dL (8.5-10.1) 01/25/20 04:16 Magnesium 1.9 mg/dL (1.7-2.9) 01/25/20 04:16 Ferritin 337 ng/mL (8-252) H 01/25/20 04:16 Total Bilirubin 0.20 mg/dL (0.2-1.0) 01/25/20 04:16 AST 16 Units/L (15-37) 01/25/20 04:16 ALT 22 Units/L (12-78) 01/25/20 04:16 Alkaline Phosphatase 70 Units/L (46-116) 01/25/20 04:16 Troponin I < 0.02 ng/mL (0-1.5) 01/20/20 17:35 C-Reactive Protein 4.80 mg/L (0-3.0) H 01/25/20 04:16 B-Natriuretic Peptide 64.5 pg/mL (0-79) 01/20/20 17:35 Total Protein 4.8 g/dL (6.4-8.2) L 01/25/20 04:16 Albumin 1.9 g/dL (3.4-5.0) L 01/25/20 04:16 Globulin 2.9 g/dL (2.5-4.5) 01/25/20 04:16 Albumin/Globulin Ratio 0.7 Ratio (1.1-2.1) L 01/25/20 04:16 Prealbumin 13.5 mg/dL (18-35.7) L 01/21/20 04:20 Specimen Type Clean catch urine 01/20/20 21:11 Urine Color Yellow (YELLOW) 01/20/20 21:11 Urine Appearance Clear (CLEAR) 01/20/20 21:11 Urine pH 8.0 (5.0 - 8.0) 01/20/20 21:11 Ur Specific [place] 1.010 (1.000-1.030) 01/20/20 21:11 Urine Protein 2+ (NEGATIVE) 01/20/20 21:11 Urine Glucose (UA) Negative (NEGATIVE) 01/20/20 21:11 Urine Ketones 2+ (NEGATIVE) 01/20/20 21:11 Urine Occult Blood Negative (NEGATIVE) 01/20/20 21:11 Urine Nitrite Negative (NEGATIVE) 01/20/20 21:11 Urine Bilirubin Negative (NEGATIVE) 01/20/20 21:11 Urine Urobilinogen Normal (NORMAL) 01/20/20 21:11 Ur Leukocyte Esterase 1+ (NEGATIVE) 01/20/20 21:11 Urine RBC None seen /HPF (0-3) 01/20/20 21:11 Urine WBC 0-2 /HPF (0-5) 01/20/20 21:11 Ur Squamous Epith Cells Few /HPF (NEGATIVE) 01/20/20 21:11 Urine Bacteria Trace /HPF (NEGATIVE) 01/20/20 21:11 Ur Culture Indicated? No/not indicated 01/20/20 21:11 SARS-CoV-2 (PCR) Positive (NEGATIVE) A 07/14/20 21:50 - Plan (1) COVID-19 virus detected Status: Acute Plan: NS AT 40 ML/HR, PROCALAMINE AT 40 ML/HR, REMDESIVIR 100MG IV DAILY, SOLU- MEDROL 80MG IV Q8H, LEVAQUIN 500MG IV DAILY, FORTAZ 1G IV Q8H, DUONEBS QID, PULMICORT BID, TYLENOL 650MG PO Q4H PRN, LOVENOX 30MG SC BID, PLAQUENIL 200MG PO BID, PROTONIX 40MG IV BID, AND THE POTASSIUM AND MAGNESIUM PROTOCOLS. (2) Pneumonia of both lower lobes Status: Acute Qualifiers: Pneumonia type: due to unspecified organism Qualified Code(s): J18.9 - Pneumonia, unspecified organism (3) Hypoxia Status: Acute (4) Hyponatremia Status: Acute (5) Altered mental status Status: Acute Qualifiers: Altered mental status type: disorientation Qualified Code(s): R41.0 - Disorientation, unspecified
[2020-01-25] MEDS: PULMICORT NEB TX 0.5 MG NEB SCH ×2 (09:40→20:25)
[2020-01-25] MEDS: DUONEB 0.5 MG/3 MG (3 mL) NEB SCH ×4 (09:40→20:25)
[2020-01-25] MEDS: REMDESIVIR (INVESTIGATIONAL DRUG GS-5734) 100 MG in NS 250 ML IV 250 ML IV SCH (10:08)
[2020-01-25] MEDS: MAGNESIUM SULFATE 1 GRAM/100 mL PREMIX 1 GM/100 ML BAG IV PRN ×2 (11:58→13:22)
[2020-01-25] MEDS ORDERED: KLONOPIN TAB 0.5 MG ONE (13:32)
[2020-01-25] MEDS: KLONOPIN TAB 0.5 MG PO PRN ×2 (13:33→20:24)
[2020-01-25] MEDS ORDERED: NORTRIPTYLINE 10 MG PO SCH (21:00)
[2020-01-26] MEDS: FORTAZ or TAZICEF VIAL INJ 1 G in NS 100 ML IV + SPIKE MINIBAG* 100 ML IV SCH (05:10)
[2020-01-26] MEDS: SOLU-Medrol 40 MG VIAL IVP SCH (05:10)
[2020-01-26 05:43] LABS: ALANINE AMINOTRANSFERASE 22 Units/L (12-78); ALBUMIN 1.8 g/dL (3.4-5.0); ALKALINE PHOSPHATASE 54 Units/L (46-116); ASPARTATE AMINO TRANSFERASE 17 Units/L (15-37); BASOPHILS % (AUTO) 0.3 % (0.2-1.0); BLOOD UREA NITROGEN 16 mg/dL (7-18); CALCIUM 6.9 mg/dL (8.5-10.1); CARBON DIOXIDE 24.7 mmol/L (21-32); CHLORIDE 107 mmol/L (98-107); COR CA(FOR HYPOALB) 8.7 mg/dL (8.5-10.1); COR NA(FOR HYPERGLY) 136 mmol/L (136-145); CREATININE 0.65 mg/dL (0.55-1.02); HEMATOCRIT 27.2 % (36.0-47.0); HEMOGLOBIN 9.4 g/dL (12.0-16.0); LYMPHOCYTES # (AUTO) 0.9 X10^3/uL (1.3-2.9); LYMPHOCYTES % (AUTO) 7.4 % (21.0-51.0); MAGNESIUM 2.2 mg/dL (1.7-2.9); MEAN CORPUSCULAR HEMOGLOBIN 32.6 pg (27.0-34.0); MEAN CORPUSCULAR HGB CONC 34.6 g/dL (33.0-35.0); MEAN CORPUSCULAR VOLUME 94.4 fL (80.0-100.0); MEAN PLATELET VOLUME 9.1 fL (7.4-11.0); MONOCYTES # (AUTO) 0.4 x10^3/uL (0.3-0.8); MONOCYTES % (AUTO) 3.4 % (0.0-13.0); NEUTROPHILS # (AUTO) 11.1 x10^3/uL (2.2-4.8); NEUTROPHILS % (AUTO) 88.9 % (42.0-75.0); PLATELET COUNT 238 X10^3/uL (150.0-450.0); RED BLOOD COUNT 2.88 X10^6/uL (3.5-5.4); RED CELL DISTRIBUTION WIDTH 13.5 % (11.6-16.5); SODIUM 136 mmol/L (136-145); TOTAL PROTEIN 4.5 g/dL (6.4-8.2); WHITE BLOOD COUNT 12.5 X10^3/uL (3.6-10.0); eGFR NON BLACK RACES > 60 (>60)
[2020-01-26 05:46] LABS: ABG ALLEN TEST POS; ABG BASE EXCESS 0.3 mmol/L (-2.0-2.0); ABG HCO3 23.1 mmol/L (22-26)
--- NOTE | 2020-01-26 08:12 | RAD ---
HISTORYSOB, PNEUMONIA, COVID +STUDYCHEST, 1 VIEWCOMPARISONChest film January 24, 2020.FINDINGSThe trachea is midline. The cardiac silhouette is unremarkable. The basilar infiltrate in the right is unchanged from the prior film of January 23. There is mild worsening in the airspace disease in the left lung base with loss of the left hemidiaphragm on the current film. Left-sided PICC line is in place with tip at the junction of the superior vena cava to the right atrium. The bony thorax is unremarkable.IMPRESSIONBilateral lower lobe infiltrates with mild worsening in the left lung base compared to the last film January 24 2020.Electronically signed by: KELL MELO (Jan 26, 2020 08:11:05)
[2020-01-26] MEDS: PROTONIX INJ 40 MG VIAL IVP SCH (09:42)
[2020-01-26] MEDS: ESTRACE PO SCH (09:42)
[2020-01-26] MEDS: SYNTHROID 75 mcg TAB PO SCH (09:43)
[2020-01-26] MEDS: ZINC SULFATE PO SCH (09:43)
[2020-01-26] MEDS: LEVAQUIN PREMIX IV 500 MG 500 MG/100 ML BAG IV SCH (09:43)
[2020-01-26] MEDS: LOVENOX INJ 30 MG SYR SC SCH (09:44)
[2020-01-26] MEDS: [UNRECOGNIZED DRUG - OTHER] PO SCH (10:35)
[2020-01-26] MEDS: PLAQUENIL PO SCH (10:36)
[2020-01-26] MEDS: DUONEB 0.5 MG/3 MG (3 mL) NEB SCH (10:56)
[2020-01-26] MEDS: PULMICORT NEB TX 0.5 MG NEB SCH (10:56)
[2020-01-26] MEDS: NS 1000 ML 1,000 ML IV SCH (12:01)
[2020-01-26] MEDS: PROCALAMINE 3 % 1,000 ML IV SCH (12:02)
[2020-01-26 13:25] VITALS: BP 125/60
== END 2020-01-26 13:55 | disposition home health service (06) | DRG 177 ==
LOC: ER 17:15 → ICU 21:31
PROVIDERS: ADMIT Internal Medicine; ATTEND Internal Medicine
DX: R09.02 Hypoxemia; K21.9 Gastro-esophageal reflux disease without esophagitis; R06.02 Shortness of breath; J12.89 Other viral pneumonia; G40.89 Other seizures; E03.8 Other specified hypothyroidism; U07.1 COVID-19; R26.89 Other abnormalities of gait and mobility; E87.1 Hypo-osmolality and hyponatremia; R41.0 Disorientation, unspecified
CPT/HCPCS: 36415; 36600; 70450; 71010; 71045; 80053; 81001; 82728; 82803; 83605; 83735; 83880; 84132; 84134; 84484; 85025; 86140; 87040; 87635; 93005; 94640; 94760; 96365; 96367; 96374; 96375; 97110; 97112; 97116; 97162; 97166; 97530; 97535; 99284; A4216; A4222; B5200; C9113; J0456; J0696; J0713; J1650; J1956; J2920; J2930; J3262; J3411; J3475; J3490; J7030; J7050; J7620; J7626